=== PATIENT | male | born 1965 | race Caucasian/White ===

== ENCOUNTER 2017-02-13 13:57 | Emergency (ER) | payer OTHER ==
[~2017-02-13] VITALS: Ht 180.3 cm; Wt 75.0 kg
[~2017-02-13 13:57] MED LIST: ASPI1TAB69 PO; ATOR40TA16 PO; CIPR500T2 PO; DICY10 PO; LISI-515 PO; LISI2.5T3 PO; MESA1TAB2 PO; METO25TA6 PO; NORC5TAB PO; OMEP40CA2 PO; SULF500T39 PO; ZOFR4TAB PO
[2017-02-13 13:58] VITALS: BP 140/88; PULSE 80; RESP 20; TEMP 97.5; O2SAT 98
--- NOTE | 2017-02-13 14:39 | PD ---
HPI Chief Complaint: GI Complaint Time Seen by Provider: 14:28 Travel History International Travel<30 days: No Contact w/Intl Traveler<30days: No Traveled to known affect area: No History of Present Illness HPI Patient is a 51-year-old male with long-standing history of ulcerative colitis who missed through Monday of work due to his ulcerative colitis pain. Patient states that this is typical for him and is not severe however work made him come to the emergency department for evaluation and get a work notes prior to returning to work. He does have some nausea and vomiting. Patient is on mesalamine, sulfasalazine, Bentyl, Zofran. Patient states that he is only here for work note. PFSH Past Medical History Hx Anticoagulant Therapy: Yes Arthritis: No Asthma: No Autoimmune Disease: No Blood Disorders: No Bipolar Disorder: Yes Anxiety: No Depression: Yes Heart Rhythm Problems: No Cancer: No Cardiac Catheterization: Yes Cardiovascular Problems: Yes (STENTS X3; [place]) High Cholesterol: No Chest Pain: Yes Congestive Heart Failure: No COPD: No Cerebrovascular Accident: No Coronary Artery Disease: Yes Diabetes: No Diminished Hearing: No Endocrine: No Gastrointestinal Disorders: Yes (ULCERATIVE COLITIS) GERD: Yes Genitourinary: No Headaches: No Hiatal Hernia: No Hypertension: Yes Immune Disorder: No Implanted Vascular Access Dvce: Yes Kidney Stones: No Musculoskeletal: No Neurologic: No Psychiatric: Yes Reproductive: No Respiratory: No Immunizations Current: Yes Migraines: No Myocardial Infarction: Yes (FEBRUARY 2009) Renal Failure: No Seizures: No Sickle Cell Disease: No Sleep Apnea: No Thyroid Disease: No Ulcer: Yes Past Surgical History Abdominal Surgery: No AICD: No Arteriovenous Shunt: No Body Medical Devices: STENTS IN THE HEART Cardiac Surgery: Yes (TWO STENTS PLACED IN 2008) Coronary Stent: Yes Ear Surgery: No Endocrine Surgery: No Eye Surgery: No Genitourinary Surgery: No Gynecologic Surgery: No Insulin Pump: No Joint Replacement: No Neurologic Surgery: No Oral Surgery: No Pacemaker: No Thoracic Surgery: No Other Surgery: Yes (right wrist) Social History Alcohol Use: No Tobacco Use: No Substance Use: No Allergies-Medications (Allergen,Severity, Reaction): Coded Allergies: Penicillin (Verified Allergy, Severe, 02/13/17) Reported Meds & Prescriptions Reported Meds & Active Scripts Active Lisinopril 2.5 Mg Tab 2.5 Mg PO DAILY Sulfazine (Sulfasalazine) 500 Mg Tab 500 Mg PO Q8H Bentyl (Dicyclomine HCl) 10 Mg Cap 10 Mg PO TID Omeprazole 40 Mg Cap 40 Mg PO DAILY Atorvastatin (Atorvastatin Calcium) 40 Mg Tab 40 Mg PO HS Zofran (Ondansetron HCl) 4 Mg Tab 4 Mg PO Q8HR PRN Reported Lisinopril 20 Mg Tab 12.5 Mg PO BID Zofran (Ondansetron HCl) 4 Mg Tab 4 Mg PO Q8HR PRN Metoprolol Succinate ER 24 HR (Metoprolol Succinate) 25 Mg Tab 12.5 Mg PO DAILY Mesalamine DR (Mesalamine) 800 Mg Tab 1,600 Mg PO TID [place] (Hydrocodone-Acetaminophen) 5-325 mg Tab 1-2 Tab PO Q6H PRN Ciprofloxacin (Ciprofloxacin HCl) 500 Mg Tab 500 Mg PO BID Aspirin 81 Mg Tabdr 81 Mg PO DAILY Review of Systems Except as stated in HPI: all other systems reviewed are Neg Physical Exam Narrative GENERAL: Well-appearing male in no acute distress SKIN: Focused skin assessment warm/dry. HEAD: Normocephalic. EYES: No scleral icterus. No injection or drainage. ENT: Mucous membranes pink and moist. NECK: Supple CARDIOVASCULAR: Regular rate and rhythm. RESPIRATORY: No accessory muscle use. GASTROINTESTINAL: Abdomen soft, non-tender, nondistended. MUSCULOSKELETAL: Normal gait NEUROLOGICAL: Awake and alert. Normal speech. PSYCHIATRIC: Appropriate mood and affect; insight and judgment normal. Data Data Last Documented VS Vital Signs Date Time Temp Pulse Resp B/P Pulse Ox O2 Delivery O2 Flow Rate FiO2 02/13/17 13:58 97.5 80 20 140/88 98 Room Air MDM Medical Decision Making Medical Screen Exam Complete: Yes Emergency Medical Condition: Yes Medical Record Reviewed: Yes Differential Diagnosis 55-year-old male with history of ulcerative colitis here with recent flare, pain or any improving. However needs a note for work. His abdominal examination is benign and history is consistent with ulcerative colitis. Patient really is not here for the pain and actually states that this is gradually been improving. Narrative Course In the above and I do not think the patient warrants any abdominal workup. Will be given note to return to work. Diagnosis Primary Impression: Ulcerative colitis Qualified Code: K51.90 - Ulcerative colitis without complications, unspecified location Referrals: Primary Care Physician as needed Departure Forms: Tests/Procedures, Work Release Enter return to work date: Feb 14, 2017 Special Instructions: Please excuse patient from work. He is okay to return to work tomorrow, 02/14. Additional Instructions: Return to work as discussed. Med/Other Pt SpecificInfo: No Change to Meds Disposition: 01 DISCHARGE HOME Condition: Fela Castaneda MD Feb 13, 2017 14:39
[2017-02-13] MEDS ORDERED: ONDANSETRON ODT 4 MG TAB PO ONE (15:00)
== END 2017-02-13 14:59 | disposition home or self-care (01) ==
LOC: NEPD 13:57
DX: K51.90 Ulcerative colitis, unspecified, without complications (principal); R11.2 Nausea with vomiting, unspecified; F31.9 Bipolar disorder, unspecified; K21.9 Gastro-esophageal reflux disease without esophagitis; I10 Essential (primary) hypertension
CPT/HCPCS: 99282

== ENCOUNTER 2017-03-31 13:16 | Emergency (ER) | payer SELFPAY ==
[~2017-03-31] VITALS: Ht 180.3 cm; Wt 75.0 kg
[2017-03-31 13:18] VITALS: BP 118/76; PULSE 88; RESP 17; TEMP 98.2; O2SAT 98
--- NOTE | 2017-03-31 13:30 | PD ---
Physical Exam Time Seen by Provider: 13:30 Narrative 52 y/o male w/ hx of UC presents with 5 days of abdominal cramping, n/v/d. Vital signs reviewed. Seen at triage desk. Awaiting bed placement. Data Data Last Documented VS Vital Signs Date Time Temp Pulse Resp B/P Pulse Ox O2 Delivery O2 Flow Rate FiO2 03/31/17 13:18 98.2 88 17 118/76 98 MDM Medical Record Reviewed: Yes Supervised Visit with RAFAELA: Romeo Alaniz Mar 31, 2017 13:30
[2017-03-31 14:07] LABS: AUTOMATED NEUTROPHIL # 5.3 TH/MM3 (1.8-7.7); BASOPHIL # 0.1 TH/MM3 (0-0.2); EOSINOPHIL # 0.1 TH/MM3 (0-0.4); EOSINOPHIL % 1.3 % (0.0-4.0); HEMATOCRIT 47.7 % (39.0-51.0); HEMO FLAGS DIFF FINAL; MEAN CELL VOLUME 86.9 FL (80.0-100.0); MEAN CORPUSCULAR HEMOGLOBIN 30.3 PG (27.0-34.0); MEAN CORPUSCULAR HGB CONC 34.9 % (32.0-36.0); MONO % 5.8 % (0.0-8.0); NEUT % 66.9 % (16.0-70.0); PLATELET COUNT 251 TH/MM3 (150-450); RED BLOOD COUNT 5.49 MIL/MM3 (4.50-5.90); RED CELL DISTRIBUTION WIDTH 13.1 % (11.6-17.2)
[2017-03-31 14:20] LABS: ALT (GPT) 48 U/L (12-78); ANION GAP 8 MEQ/L (5-15); AST (GOT) 32 U/L (15-37); BICARBONATE 30.1 MEQ/L (21.0-32.0); BLOOD UREA NITROGEN 8 MG/DL (7-18); CHLORIDE 99 MEQ/L (98-107); GLOMERULAR FILTRATION RATE 72 ML/MIN (>89); POTASSIUM 3.8 MEQ/L (3.5-5.1); SODIUM (NA) 137 MEQ/L (136-145)
[2017-03-31 14:22] LABS: ALKALINE PHOSPHATASE 94 U/L (45-117); TOTAL BILIRUBIN ADULT 0.4 MG/DL (0.2-1.0)
--- NOTE | 2017-03-31 14:23 | PD ---
HPI Chief Complaint: GI Complaint Time Seen by Provider: 14:23 Travel History International Travel<30 days: No Contact w/Intl Traveler<30days: No Traveled to known affect area: No History of Present Illness HPI 52-year-old male with history of ulcerative colitis, presents to the emergency department for evaluation of abdominal pain, cramping, and bowel movements varying from loose to liquid over the last 5 days. Denies any blood in his stool. States that he feels that he is having an ulcerative colitis flare. He has not been taking his medications because he states he's been unable to afford them. He is a patient in the community clinic but has not contacted his primary care provider in regards to his symptoms. Denies any fever or chills. Denies chest pain or tightness. Denies any urinary symptoms. He has no other symptoms to report. Patient does report a hospitalization this year for C. difficile and is concerned that this may be happening again. PFSH Past Medical History Hx Anticoagulant Therapy: Yes Arthritis: No Asthma: No Autoimmune Disease: No Blood Disorders: No Bipolar Disorder: Yes Anxiety: No Depression: Yes Heart Rhythm Problems: No Cancer: No Cardiac Catheterization: Yes Cardiovascular Problems: Yes High Cholesterol: No Chest Pain: Yes Congestive Heart Failure: No COPD: No Cerebrovascular Accident: No Coronary Artery Disease: Yes Diabetes: No Diminished Hearing: No Endocrine: No Gastrointestinal Disorders: Yes (ULCERATIVE COLITIS) GERD: Yes Genitourinary: No Headaches: No Hiatal Hernia: No Hypertension: Yes Immune Disorder: No Implanted Vascular Access Dvce: Yes Kidney Stones: No Musculoskeletal: No Neurologic: No Psychiatric: Yes Reproductive: No Respiratory: No Immunizations Current: Yes Migraines: No Myocardial Infarction: Yes (FEBRUARY 2009) Renal Failure: No Seizures: No Sickle Cell Disease: No Sleep Apnea: No Thyroid Disease: No Ulcer: Yes Past Surgical History Abdominal Surgery: No AICD: No Arteriovenous Shunt: No Body Medical Devices: STENTS IN THE HEART Cardiac Surgery: Yes (TWO STENTS PLACED IN 2008) Coronary Stent: Yes Ear Surgery: No Endocrine Surgery: No Eye Surgery: No Genitourinary Surgery: No Gynecologic Surgery: No Insulin Pump: No Joint Replacement: No Neurologic Surgery: No Oral Surgery: No Pacemaker: No Thoracic Surgery: No Other Surgery: Yes (right wrist) Social History Alcohol Use: No Tobacco Use: No Substance Use: No Allergies-Medications (Allergen,Severity, Reaction): Coded Allergies: Penicillin (Verified Allergy, Severe, 02/13/17) Reported Meds & Prescriptions Reported Meds & Active Scripts Active Flagyl (Metronidazole) 500 Mg Tab 500 Mg PO TID 14 Days Sulfasalazine 500 Mg Tab 500 Mg PO Q8H Bentyl (Dicyclomine HCl) 10 Mg Cap 10 Mg PO TID PRN Lisinopril 5 Mg Tab 2.5 Mg PO DAILY Lisinopril 2.5 Mg Tab 2.5 Mg PO DAILY Sulfazine (Sulfasalazine) 500 Mg Tab 500 Mg PO Q8H Bentyl (Dicyclomine HCl) 10 Mg Cap 10 Mg PO TID Omeprazole 40 Mg Cap 40 Mg PO DAILY Atorvastatin (Atorvastatin Calcium) 40 Mg Tab 40 Mg PO HS Zofran (Ondansetron HCl) 4 Mg Tab 4 Mg PO Q8HR PRN Reported Lisinopril 20 Mg Tab 12.5 Mg PO BID Zofran (Ondansetron HCl) 4 Mg Tab 4 Mg PO Q8HR PRN Metoprolol Succinate ER 24 HR (Metoprolol Succinate) 25 Mg Tab 12.5 Mg PO DAILY Mesalamine DR (Mesalamine) 800 Mg Tab 1,600 Mg PO TID [place] (Hydrocodone-Acetaminophen) 5-325 mg Tab 1-2 Tab PO Q6H PRN Ciprofloxacin (Ciprofloxacin HCl) 500 Mg Tab 500 Mg PO BID Aspirin 81 Mg Tabdr 81 Mg PO DAILY Review of Systems Except as stated in HPI: all other systems reviewed are Neg Physical Exam Narrative GENERAL: Well-nourished male patient, ambulatory and in no acute distress SKIN: Focused skin assessment warm/dry. HEAD: Atraumatic. Normocephalic. EYES: Pupils equal and round. No scleral icterus. No injection or drainage. ENT: No nasal bleeding or discharge. Mucous membranes pink and moist. NECK: Trachea midline. No JVD. CARDIOVASCULAR: Regular rate and rhythm. No murmur appreciated. RESPIRATORY: No accessory muscle use. Clear to auscultation. Breath sounds equal bilaterally. GASTROINTESTINAL: Abdomen soft nondistended. Left lower quadrant tenderness to palpation. No guarding. No rebound tenderness. Hepatic and splenic margins not palpable. MUSCULOSKELETAL: No obvious deformities. No clubbing. No cyanosis. No edema. NEUROLOGICAL: Awake and alert. No obvious cranial nerve deficits. Motor grossly within normal limits. Normal speech. PSYCHIATRIC: Appropriate mood and affect; insight and judgment normal. Data Data Last Documented VS Vital Signs Date Time Temp Pulse Resp B/P Pulse Ox O2 Delivery O2 Flow Rate FiO2 03/31/17 13:18 98.2 88 17 118/76 98 Orders Complete Blood Count With Diff (03/31/17 13:32) Comprehensive Metabolic Panel (03/31/17 13:32) Urinalysis - C+S If Indicated (03/31/17 13:32) Lipase (03/31/17 13:32) C Diff Toxin Pcr (03/31/17 14:25) Iv Access Insert/Monitor (03/31/17 14:25) Sodium Chlor 0.9% 1000 Ml Inj (Ns 1000 M (03/31/17 14:30) Labs Laboratory Tests Test 03/31/17 03/31/17 03/31/17 13:19 13:40 15:00 Urine Color YELLOW Urine Turbidity HAZY Urine pH 5.5 Urine Specific [place] 1.017 Urine Protein 30 mg/dL Urine Glucose (UA) NEG mg/dL Urine Ketones NEG mg/dL Urine Occult Blood SMALL Urine Nitrite NEG Urine Bilirubin NEG Urine Urobilinogen LESS THAN 2.0 MG/DL Urine Leukocyte Esterase NEG Urine RBC 21 /hpf Urine WBC 4 /hpf Urine Squamous Epithelial <1 /hpf Cells Urine Bacteria RARE /hpf Urine Hyaline Casts 85 /lpf Urine Mucus MANY /lpf Microscopic Urinalysis Comment CULT NOT INDICATED White Blood Count 8.0 TH/MM3 Red Blood Count 5.49 MIL/MM3 Hemoglobin 16.7 GM/DL Hematocrit 47.7 % Mean Corpuscular Volume 86.9 FL Mean Corpuscular Hemoglobin 30.3 PG Mean Corpuscular Hemoglobin 34.9 % Concent Red Cell Distribution Width 13.1 % Platelet Count 251 TH/MM3 Mean Platelet Volume 8.6 FL Neutrophils (%) (Auto) 66.9 % Lymphocytes (%) (Auto) 25.0 % Monocytes (%) (Auto) 5.8 % Eosinophils (%) (Auto) 1.3 % Basophils (%) (Auto) 1.0 % Neutrophils # (Auto) 5.3 TH/MM3 Lymphocytes # (Auto) 2.0 TH/MM3 Monocytes # (Auto) 0.5 TH/MM3 Eosinophils # (Auto) 0.1 TH/MM3 Basophils # (Auto) 0.1 TH/MM3 CBC Comment DIFF FINAL Differential Comment Sodium Level 137 MEQ/L Potassium Level 3.8 MEQ/L Chloride Level 99 MEQ/L Carbon Dioxide Level 30.1 MEQ/L Anion Gap 8 MEQ/L Blood Urea Nitrogen 8 MG/DL Creatinine 1.08 MG/DL Estimat Glomerular Filtration 72 ML/MIN Rate Random Glucose 148 MG/DL Calcium Level 10.1 MG/DL Total Bilirubin 0.4 MG/DL Aspartate Amino Transf 32 U/L (AST/SGOT) Alanine Aminotransferase 48 U/L (ALT/SGPT) Alkaline Phosphatase 94 U/L Total Protein 7.8 GM/DL Albumin 4.3 GM/DL Lipase 80 U/L Stool C. difficile Toxin (PCR) POSITIVE Stl C. difficile Toxin PRESUMPTIVE Epiderm 027 NEGATIVE MDM Medical Decision Making Medical Screen Exam Complete: Yes Emergency Medical Condition: Yes Medical Record Reviewed: Yes Differential Diagnosis Ulcerative colitis versus diverticulitis versus gastroenteritis versus C. difficile Narrative Course 52-year-old male presents to emergency department for evaluation. Patient appears well and without distress. He does have some left lower quadrant tenderness to palpation, otherwise exam is benign. Vital signs are stable. CBC and CMP are without acute concern. Urinalysis is hazy with small occult blood, 21 RBC, rare bacteria, many mucus. Culture is not indicated. C. difficile PCR is positive. I discussed the patient with my attending physician. Patient appears well. He does not have a leukocytosis. He will be started on Flagyl outpatient. He is encouraged to follow-up with gastroenterology and to return immediately with any acute worsening of symptoms. Patient will also begin refill of his ulcerative colitis medications as well as his antihypertensive. I have explained to him that the antihypertensive is free of [employer]. He agrees to return immediately with any acute worsening symptoms. Diagnosis Primary Impression: Ulcerative colitis Qualified Code: K51.90 - Ulcerative colitis without complications, unspecified location Additional Impression: C. difficile colitis Referrals: [facility] Primary Care Physician Patient Instructions: General Instructions, Ulcerative Colitis (ED) Departure Forms: Tests/Procedures, Work Release Enter return to work date: Apr 03, 2017 Additional Instructions: Maintain a bland diet Maintain adequate oral hydration Frequent handwashing Avoid sharing toilet and restroom space with others Follow-up with a primary care provider Follow-up with gastroenterology Return immediately with any acute worsening symptoms Med/Other Pt SpecificInfo: Prescription(s) given Scripts Metronidazole (Flagyl)500 Mg [id number] Mg PO TID 14 Days Ref 0 Prov:Apple Carlisle 03/31/17 Sulfasalazine 500 Mg [id number] Mg PO Q8H #90 TAB Ref 0 Prov:Apple Carlisle 03/31/17 Dicyclomine (Bentyl)10 Mg Cap10 Mg PO TID PRN (Bowel Management) #21 CAP Ref 0 Prov:Apple Carlisle 03/31/17 Lisinopril 5 Mg Tab2.5 Mg PO DAILY #30 TAB Ref 0 Prov:Apple Carlisle 03/31/17 Disposition: 01 DISCHARGE HOME Condition: Stable Apple Carlisle Mar 31, 2017 14:23
[2017-03-31 14:25] LABS: BACTERIA, URINE RARE /hpf; BLOOD, URINE SMALL (NEG); COMMENT (UR) CULT NOT INDICATED; CULTURE IF INDICATED CULT NOT INDICATED; GLUCOSE,URINE NEG (NEG); HYALINE CAST, URINE 85 /lpf (RARE); KETONE, URINE NEG (NEG); MUCUS URINE MANY /lpf (OCC); NITRITE,URINE NEG (NEG); PH, URINE 5.5 (5.0-8.5); SQUAMOUS EPITHELIAL CELL URINE <1 /hpf (0-5); URINE COLOR YELLOW (YELLW/STRAW)
[2017-03-31] MEDS ORDERED: SODIUM CHLOR 0.9% 1000 ML INJ 1,000 ML IV ONE (14:30)
[2017-03-31] MEDS ORDERED: SULF500T3 PO (17:25)
[2017-03-31] MEDS ORDERED: LISI-519 PO (17:25)
[2017-03-31] MEDS ORDERED: DICY10 PO (17:25)
[2017-03-31 17:37] LABS: C. DIFF EPI 027 PRESUMPTIVE NEGATIVE (NEGATIVE)
[2017-03-31] MEDS ORDERED: METR-1 PO (17:48)
[2017-03-31 17:56] LABS: C. DIFF TOXIN PCR POSITIVE (NEGATIVE)
== END 2017-03-31 18:00 | disposition home or self-care (01) ==
LOC: NEPC 13:16
DX: K51.90 Ulcerative colitis, unspecified, without complications (principal); A04.7 Enterocolitis due to Clostridium difficile; I10 Essential (primary) hypertension; Z79.01 Long term (current) use of anticoagulants
CPT/HCPCS: 80053; 81001; 83690; 85025; 87493; 96360; 99284; J7030

== ENCOUNTER 2017-04-27 11:39 | Emergency (ER) | payer SELFPAY ==
[~2017-04-27] VITALS: Ht 180.3 cm; Wt 75.0 kg
[~2017-04-27 11:39] MED LIST changes: +LISI-519 PO; +METR-1 PO; +SULF500T3 PO
[2017-04-27 11:44] VITALS: BP 149/62; PULSE 95; RESP 20; TEMP 98.6; O2SAT 97
[2017-04-27] MEDS ORDERED: ASPI81CH CHEW (11:52)
--- NOTE | 2017-04-27 12:02 | PD ---
HPI Chief Complaint: Cold / Flu Symptoms Time Seen by Provider: 11:47 Travel History International Travel<30 days: No Contact w/Intl Traveler<30days: No Traveled to known affect area: No History of Present Illness HPI Is a 52-year-old man who presents emergency room clinical cold congestion symptoms with headache and sinus pressure is been ongoing for the past several days. It increased sputum production during the same time. He is also started having loose stools. He had fevers and chills initially the onset of symptoms but they've mostly resolved. No significant abdominal pain. No shortness of breath, no chest pain. He is a history of ulcerative colitis but is not on medications now. He also recently had C. difficile was in the hospital several months ago. Denies any other new or worsening symptoms. History Past Medical History Narrative Medical Ulcerative colitis CAD GERD Hypertension Depression, bipolar Social History Alcohol Use: Yes (seldom) Tobacco Use: No Allergies-Medications (Allergen,Severity, Reaction): Coded Allergies: Penicillin (Verified Allergy, Severe, 04/27/17) Reported Meds & Prescriptions Reported Meds & Active Scripts Active Reported Aspirin 81 Mg Chew 81 Mg CHEW DAILY Review of Systems Except as stated in HPI: all other systems reviewed are Neg Physical Exam Narrative GENERAL: Well-appearing 52-year-old man, no acute distress. Frequent cough and sniffles. SKIN: Focused skin assessment warm/dry. HEAD: Atraumatic. Normocephalic. EYES: Pupils equal and round. No scleral icterus. No injection or drainage. ENT: No nasal bleeding or discharge. Mucous membranes pink and moist. NECK: Trachea midline. No JVD. CARDIOVASCULAR: Regular rate and rhythm. No murmur appreciated. RESPIRATORY: No accessory muscle use. Clear to auscultation. Breath sounds equal bilaterally. GASTROINTESTINAL: Abdomen soft, non-tender, nondistended. Hepatic and splenic margins not palpable. MUSCULOSKELETAL: No obvious deformities. No clubbing. No cyanosis. No edema. Data Data Last Documented VS Vital Signs Date Time Temp Pulse Resp B/P Pulse Ox O2 Delivery O2 Flow Rate FiO2 04/27/17 11:44 98.6 95 20 149/62 97 Room Air Orders C Diff Toxin Pcr (04/27/17 11:58) Chest, Pa & Lat (04/27/17 ) MDM Medical Decision Making Medical Screen Exam Complete: Yes Emergency Medical Condition: Yes Interpretation(s) Chest x-ray no pneumonia Differential Diagnosis URI, viral syndrome, pneumonia, colitis, C. difficile, other Narrative Course medical decision-making this a 52-year-old man who presents emergent department with sounds like acute bronchitis. He's had symptoms for several days and is pretty miserable. He is also recently had C. difficile however. We'll try to avoid antibiotics if possible. We'll check x-ray to look for pneumonia. If patient can give stool sample we'll check a C. difficile. Otherwise will recommend supportive treatment, and if he develops fever again or is not improved in a couple days we 'll start him on antibiotics with probiotics. Diagnosis Primary Impression: URI (upper respiratory infection) Additional Impression: Diarrhea Additional Instructions: If you're feeling worse tomorrow with fever, or if you're not improved in 48 hours, take antibiotics as prescribed. Treated antibiotics with some probiotics such as Align to reduce risk of C. difficile. Follow-up with your primary doctor in the next 2-4 days. Med/Other Pt SpecificInfo: Prescription(s) given Scripts Azithromycin (Zithromax Z-Bryn)250 Mg [id number] Mg PO DIRECTED #1 DSPK 500 MG (2 tabs) day 1, then 1 tab days 2-5. Prov:Eliezer Calderon MD 04/27/17 Disposition: 01 DISCHARGE HOME Condition: Stable Eliezer Calderon MD Apr 27, 2017 12:02
--- NOTE | 2017-04-27 12:31 | RADRPT ---
EXAM DATE/TIME: 04/27/2017 12:07 [facility] COMPARISON: CHEST SINGLE AP, May 04, 2016, 19:33. INDICATIONS : Cough, cold and flu-like symptoms for 5 days. MEDICAL HISTORY : Myocardial infarction. Cardiovascular disease. SURGICAL HISTORY : Coronary artery stent. ENCOUNTER: Initial ACUITY: 4 - 6 days PAIN SCORE: 0/10 LOCATION: Bilateral chest FINDINGS: PA and lateral views of the chest demonstrate the lungs to be symmetrically aerated without evidence of mass, infiltrate or effusion. The cardiomediastinal contours are unremarkable. Mild compression d eformity involving a lower thoracic vertebra body is noted and is indeterminate in age. CONCLUSION: No acute cardiopulmonary disease. Mild compression deformity involving a lower thorac ic vertebra body is noted and is indeterminate in age. Donnie Oakley MD on April 27, 2017 at 12:23 Board Certified Radiologist. This report was verified electronically.
[2017-04-27] MEDS ORDERED: ZITHTAB PO (13:28)
== END 2017-04-27 14:41 | disposition home or self-care (01) ==
LOC: NEPD 11:39
DX: J06.9 Acute upper respiratory infection, unspecified (principal); R19.7 Diarrhea, unspecified; I25.10 Atherosclerotic heart disease of native coronary artery without angina pectoris; K21.9 Gastro-esophageal reflux disease without esophagitis; I10 Essential (primary) hypertension; F31.9 Bipolar disorder, unspecified; Z79.82 Long term (current) use of aspirin; Z88.0 Allergy status to penicillin
CPT/HCPCS: 71020; 99283

== ENCOUNTER 2017-05-19 13:02 | Emergency (ER) | payer SELFPAY ==
[~2017-05-19 13:02] MED LIST changes: -ASPI1TAB69 PO; +ASPI81CH CHEW; -ATOR40TA16 PO; -CIPR500T2 PO; -DICY10 PO; -LISI-515 PO; -LISI-519 PO; -LISI2.5T3 PO; -MESA1TAB2 PO; -METO25TA6 PO; -METR-1 PO; -NORC5TAB PO; -OMEP40CA2 PO; -SULF500T3 PO; -SULF500T39 PO; +ZITHTAB PO; -ZOFR4TAB PO
[2017-05-19 13:09] VITALS: BP 116/67; PULSE 78; RESP 20; TEMP 97.5; O2SAT 99
[2017-05-19] MEDS ORDERED: SODIUM CHLOR 0.9% 1000 ML INJ 1,000 ML IV ONE (13:24)
[2017-05-19 13:30] VITALS: O2SAT 100
[2017-05-19 13:43] LABS: AUTOMATED NEUTROPHIL # 5.8 TH/MM3 (1.8-7.7); BASOPHIL % 0.5 % (0.0-2.0); EOSINOPHIL # 0.1 TH/MM3 (0-0.4); EOSINOPHIL % 0.7 % (0.0-4.0); HEMATOCRIT 43.1 % (39.0-51.0); HEMO FLAGS DIFF FINAL; LYMPH % 25.3 % (9.0-44.0); LYMPHOCYTE # 2.2 TH/MM3 (1.0-4.8); MEAN CELL VOLUME 87.5 FL (80.0-100.0); MEAN CORPUSCULAR HEMOGLOBIN 29.8 PG (27.0-34.0); MONO % 6.1 % (0.0-8.0); NEUT % 67.4 % (16.0-70.0); PLATELET COUNT 233 TH/MM3 (150-450); RED BLOOD COUNT 4.92 MIL/MM3 (4.50-5.90); RED CELL DISTRIBUTION WIDTH 11.6 % (11.6-17.2); WHITE BLOOD COUNT 8.6 TH/MM3 (4.0-11.0)
--- NOTE | 2017-05-19 13:45 | PD ---
HPI Chief Complaint: General Weakness Time Seen by Provider: 13:27 Travel History International Travel<30 days: No Contact w/Intl Traveler<30days: No Traveled to known affect area: No History of Present Illness HPI 52-year-old male with past medical history of OR, ulcerative colitis, bipolar disorder presents to the emergency room after having an episode of dizziness associated with vomiting while digging a ditch. 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 He reports today while digging a ditch in the heat he felt dizzy and began to vomit several times. He then called 911 for transport to the emergency department. Upon arrival he reports dizziness and generalized weakness. He reports he thinks he is dehydrated. He denies chest pain but reports he felt short of breath when he was vomiting. He reports that episode lasted several minutes and then spontaneously resolved. He is not currently on any medications. PFSH Past Medical History Hx Anticoagulant Therapy: Yes Arthritis: No Asthma: No Autoimmune Disease: No Blood Disorders: No Bipolar Disorder: Yes Anxiety: No Depression: Yes Heart Rhythm Problems: No Cancer: No Cardiac Catheterization: Yes Cardiovascular Problems: Yes (3 stents) High Cholesterol: No Chest Pain: Yes Congestive Heart Failure: No COPD: No Cerebrovascular Accident: No Coronary Artery Disease: Yes Diabetes: No Diminished Hearing: No Endocrine: No Gastrointestinal Disorders: Yes (UC) GERD: Yes Genitourinary: No Headaches: No Hiatal Hernia: No Hypertension: Yes Immune Disorder: No Implanted Vascular Access Dvce: Yes Kidney Stones: No Musculoskeletal: No Neurologic: No Psychiatric: Yes Reproductive: No Respiratory: No Immunizations Current: Yes Migraines: No Myocardial Infarction: Yes (FEBRUARY 2009) Renal Failure: No Seizures: No Sickle Cell Disease: No Sleep Apnea: No Thyroid Disease: No Ulcer: Yes Past Surgical History Abdominal Surgery: No AICD: No Arteriovenous Shunt: No Body Medical Devices: STENTS IN THE HEART Cardiac Surgery: Yes (TWO STENTS PLACED IN 2008) Coronary Stent: Yes Ear Surgery: No Endocrine Surgery: No Eye Surgery: No Genitourinary Surgery: No Gynecologic Surgery: No Insulin Pump: No Joint Replacement: No Neurologic Surgery: No Oral Surgery: No Pacemaker: No Thoracic Surgery: No Other Surgery: Yes (right wrist) Social History Alcohol Use: Yes (seldom) Tobacco Use: No Substance Use: No Allergies-Medications (Allergen,Severity, Reaction): Coded Allergies: Penicillin (Verified Allergy, Severe, Anaphylaxis, 05/19/17) Reported Meds & Prescriptions Reported Meds & Active Scripts Active Reported Aspirin 81 Mg Chew 81 Mg CHEW DAILY Review of Systems Except as stated in HPI: all other systems reviewed are Neg General / Constitutional: No: Fever Eyes: No: Visual changes Cardiovascular: No: Chest Pain or Discomfort Respiratory: No: Shortness of Breath Gastrointestinal: Positive: Nausea, Vomiting Genitourinary: No: Dysuria Skin: No Rash Neurologic: Positive: Dizziness Physical Exam Narrative GENERAL: Alert, disheveled and dirty male, in no acute distress. SKIN: Focused skin assessment warm/dry. HEAD: Atraumatic. Normocephalic. EYES: Pupils equal and round. No scleral icterus. No injection or drainage. EOMs intact. No nystagmus. ENT: No nasal bleeding or discharge. Mucous membranes pink and moist. NECK: Trachea midline. No JVD. CARDIOVASCULAR: Regular rate and rhythm. No murmur appreciated. RESPIRATORY: No accessory muscle use. Clear to auscultation. Breath sounds equal bilaterally. No wheezing, rales or rhonchi GASTROINTESTINAL: Abdomen soft, non-tender, nondistended. Hepatic and splenic margins not palpable. MUSCULOSKELETAL: No obvious deformities. No clubbing. No cyanosis. No edema. NEUROLOGICAL: Awake and alert. No obvious cranial nerve deficits. Motor grossly within normal limits. Normal speech. No limb drift. 5 out of 5 strength in extremities PSYCHIATRIC: Appropriate mood and affect; insight and judgment normal. Data Data Last Documented VS Vital Signs Date Time Temp Pulse Resp B/P Pulse Ox O2 Delivery O2 Flow Rate FiO2 05/19/17 14:10 78 16 122/60 100 Room Air 05/19/17 13:09 97.5 Orders Electrocardiogram (05/19/17 13:24) Basic Metabolic Panel (Bmp) (05/19/17 13:24) Complete Blood Count With Diff (05/19/17 13:24) Troponin I (05/19/17 13:24) Ct Brain W/O Iv Contrast(Rout) (05/19/17 13:24) Ecg Monitoring (05/19/17 13:24) Iv Access Insert/Monitor (05/19/17 13:24) Oximetry (05/19/17 13:24) Sodium Chlor 0.9% 1000 Ml Inj (Ns 1000 M (05/19/17 13:24) Labs Laboratory Tests Test 05/19/17 13:25 White Blood Count 8.6 TH/MM3 Red Blood Count 4.92 MIL/MM3 Hemoglobin 14.7 GM/DL Hematocrit 43.1 % Mean Corpuscular Volume 87.5 FL Mean Corpuscular Hemoglobin 29.8 PG Mean Corpuscular Hemoglobin 34.0 % Concent Red Cell Distribution Width 11.6 % Platelet Count 233 TH/MM3 Mean Platelet Volume 8.6 FL Neutrophils (%) (Auto) 67.4 % Lymphocytes (%) (Auto) 25.3 % Monocytes (%) (Auto) 6.1 % Eosinophils (%) (Auto) 0.7 % Basophils (%) (Auto) 0.5 % Neutrophils # (Auto) 5.8 TH/MM3 Lymphocytes # (Auto) 2.2 TH/MM3 Monocytes # (Auto) 0.5 TH/MM3 Eosinophils # (Auto) 0.1 TH/MM3 Basophils # (Auto) 0.0 TH/MM3 CBC Comment DIFF FINAL Differential Comment Sodium Level 142 MEQ/L Potassium Level 3.3 MEQ/L Chloride Level 110 MEQ/L Carbon Dioxide Level 23.4 MEQ/L Anion Gap 9 MEQ/L Blood Urea Nitrogen 17 MG/DL Creatinine 1.20 MG/DL Estimat Glomerular Filtration 64 ML/MIN Rate Random Glucose 104 MG/DL Calcium Level 8.7 MG/DL Troponin I LESS THAN 0.02 NG/ML MDM Medical Decision Making Medical Screen Exam Complete: Yes Emergency Medical Condition: Yes Differential Diagnosis Dehydration versus metabolic abnormalities versus ACS versus vertigo versus orthostasis Narrative Course 52-year-old male with past medical history of OR, ulcerative colitis, bipolar disorder who is currently living in transitional housing and 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 He called EMS for transport to the hospital for evaluation. EMS administered 4 mg IV Zofran and 500 cc of normal saline en route. On arrival to the emergency department patient is complaining of feeling dehydrated. He reports he is not used to working outside in the heat. He is a disheveled male who makes poor eye contact when interviewing him. He does not appear in any distress. IV access established, placed on cardiac and pulse oximetry monitoring , labs ordered and pending, IV fluids administered, EKG obtained, CT the brain pending. CBC: Unremarkable BMP: Unremarkable with the exception of potassium 3.3 replace with oral potassium chloride in ED Troponin: Negative, Less than 0.2 EKG: Sinus rhythm, rate 69, no ST elevation or depression, normal axis, normal intervals CT the brain: No intracranial abnormality. 1450 patient reassessed at this time. He reports symptom improvement and is requesting discharge. He reports the dizziness has resolved. He has a mild headache. He has a normal neurologic exam. Return precautions discussed with patient he agrees to plan. Diagnosis Primary Impression: Dizziness Additional Impression: Hypokalemia Referrals: [facility] Additional Instructions: Stay well hydrated by drinking plenty of fluids. Avoid being out in the heat for long periods of time. Follow-up with the [facility]. Return to the emergency department if he developed new or worsening symptoms Disposition: 01 DISCHARGE HOME Condition: Stable Pati French May 19, 2017 13:45
[2017-05-19 13:54] LABS: CHLORIDE 110 MEQ/L (98-107); POTASSIUM 3.3 MEQ/L (3.5-5.1); SODIUM (NA) 142 MEQ/L (136-145)
[2017-05-19 13:57] LABS: ANION GAP 9 MEQ/L (5-15); BICARBONATE 23.4 MEQ/L (21.0-32.0)
[2017-05-19 13:58] LABS: BLOOD UREA NITROGEN 17 MG/DL (7-18)
[2017-05-19 14:01] LABS: GLOMERULAR FILTRATION RATE 64 ML/MIN (>89)
[2017-05-19 14:10] VITALS: BP 122/60; PULSE 78; RESP 16; O2SAT 100
--- NOTE | 2017-05-19 14:33 | RADRPT ---
EXAM DATE/TIME: 05/19/2017 14:12 [facility] COMPARISON: No previous studies available for comparison. INDICATIONS : Dizziness. Cephalgia. RADIATION DOSE: 65.33 CTDIvol (mGy) MEDICAL HISTORY : Myocardial infarction. Hypertension. Diabetes mellitus type 2. SURGICAL HISTORY : None. ENCOUNTER: Initial ACUITY: 1 day PAIN SCALE: 8/10 LOCATION: cranial TECHNIQUE: Multiple contiguous axial images were obtained of the head. Using automated exposure control and adj ustment of the mA and/or kV according to patient size, radiation dose was kept as low as reasonably a chievable to obtain optimal diagnostic quality images. DICOM format image data is available electro nically for review and comparison. FINDINGS: CEREBRUM: The ventricles are normal for age. No evidence of midline shift, mass lesion, hemorrhage or acute in farction. No extra-axial fluid collections are seen. POSTERIOR FOSSA: The cerebellum and brainstem are intact. The 4th ventricle is midline. The cerebellopontine angle i s unremarkable. EXTRACRANIAL: The visualized portion of the orbits is intact. SKULL: The calvaria is intact. No evidence of skull fracture. CONCLUSION: Normal examination. Srinivas Horne MD on May 19, 2017 at 14:31 Board Certified Radiologist. This report was verified electronically.
[2017-05-19] MEDS ORDERED: POTASSIUM CHLORIDE 20 MEQ CONTROLLED RELEASE TAB PO ONE (15:00)
[2017-05-19] MEDS ORDERED: ACETAMINOPHEN 325 MG TAB PO ONE (15:00)
[2017-05-19 15:25] VITALS: BP 125/71; PULSE 74; RESP 16; O2SAT 99
--- NOTE | 2017-05-20 12:28 | EKG ---
Date Performed: 05/19/2017 Time Performed: 14:28:00 PTAGE: 52 years EKG: Sinus rhythm Since previous tracing, no significant change noted NORMAL ECG PREVIOUS TRACING : 09.07.2016 18.02.01 DOCTOR: Manuel Kearney Interpretating Date/Time 05/20/2017 12:22:07
== END 2017-05-19 15:30 | disposition home or self-care (01) ==
LOC: PHEFT 13:02
DX: R42 Dizziness and giddiness (principal); E87.6 Hypokalemia; R06.02 Shortness of breath
CPT/HCPCS: 70450; 80048; 84484; 85025; 93005; 96360; 99285; J7030

== ENCOUNTER 2018-08-24 12:30 | Observation (INO) ==
--- NOTE | 2018-08-24 16:15 | XR ---
EXAM DATE: 08/24/2018 4:10 PM EDT AGE/SEX: 53 years / Male INDICATIONS: Chest pain. CLINICAL DATA: This is the patient's initial encounter. Patient reports that signs and symptoms have been present for 2 weeks and indicates a pain score of 7/10. MEDICAL/SURGICAL HISTORY: Hypertension. . Cardiac stents. COMPARISON: No prior exams available for comparison. FINDINGS: A single AP view of the chest demonstrates the lungs to be symmetrically aerated without evidence of mass, infiltrate or effusion. The cardiomediastinal contours are unremarkable. Osseous structures a re intact. CONCLUSION: No acute cardiopulmonary disease. Electronically signed by: Bonifacio Landrum MD 08/24/2018 4:14 PM EDT
[2018-08-24 16:19] LABS: Baso # (Auto) 0.1 th/mm3 (0.0-0.2); Baso % (Auto) 0.8 % (0.0-2.0); Eos # (Auto) 0.1 th/mm3 (0.0-0.4); Hematocrit 43.4 % (39.0-51.0); Hemoglobin 15.2 gm/dL (13.0-17.0); Lymph # (Auto) 2.7 th/mm3 (1.0-4.8); Lymph % (Auto) 29.4 % (9.0-44.0); Mean Corpuscular HGB Conc 35.2 % (32.0-36.0); Mean Corpuscular Hemoglobin 30.7 pg (27.0-34.0); Mean Corpuscular Volume 87.3 fL (80.0-100.0); Mean Platelet Volume 8.3 fL (7.0-11.0); Mono # (Auto) 0.8 th/mm3 (0.0-0.9); Mono % (Auto) 8.5 % (0.0-8.0); Neut # (Auto) 5.6 th/mm3 (1.8-7.7); Neut % (Auto) 60.3 % (16.0-70.0); Platelet Count 250 th/mm3 (150-450); Red Blood Count 4.97 mil/mm3 (4.50-5.90); White Blood Count 9.2 th/mm3 (4.0-11.0)
[2018-08-24 16:42] LABS: Platelet Estimate Normal (Normal); Platelet Morphology Normal (Normal); RBC Morphology Normal (Normal)
[2018-08-24 16:53] LABS: Albumin 3.8 g/dL (3.4-5.0); Anion Gap 9 meq/L (5-15); Aspartate Aminotransferase 21 U/L (15-37); Blood Urea Nitrogen 14 mg/dL (7-18); Carbon Dioxide 26.4 meq/L (21.0-32.0); Chloride 102 meq/L (98-107); Glomerular Filtration Rate Greater Than 89 mL/min (>89); Glucose,Random 198 mg/dL (74-106); Lipase 78 U/L (73-393); Potassium 3.6 meq/L (3.5-5.1); Sodium 137 meq/L (136-145)
[2018-08-24 16:59] LABS: Alanine Aminotransferase 39 U/L (12-78); Alkaline Phosphatase 106 U/L (45-117); Total Protein 7.4 g/dL (6.4-8.2)
--- NOTE | 2018-08-24 17:07 | ED ---
HPI General Chief Complaint: Chest Pain Stated Complaint: Chest pain/Medical Time Seen by Provider: 08/24/18 15:49 History of Present Illness HPI narrative: This is a 53-year-old gentleman with a history of Crohn's disease , coronary artery disease, poor social situation, presents today with complaints of chest pain, URI type symptoms, and diarrhea. Patient states that he has had these symptoms now for up to 2 weeks. He denies any fevers, chills. Patient states that he has been off of all of his medications for years. He states he last had a stent placed in 2011. Related Data Home Medications Medication Instructions Recorded Confirmed No Known Home Medications 08/24/18 08/24/18 Allergies Allergy/AdvReac Type Severity Reaction Status Date / Time penicillin G Allergy Severe Anaphylaxis Verified 08/24/18 15:28 Review of Systems ROS: all other systems reviewed are negative Constitutional Reports system reviewed and no additional complaints, except as docu Eyes Reports system reviewed and no additional complaints, except as docu ENT Reports system reviewed and no additional complaints, except as docu Cardiovascular Reports chest pain, Denies diaphoresis, Denies syncope and Reports dyspnea Respiratory Denies chest congestion, Reports cough and Reports dyspnea Gastrointestinal Denies melena, Denies hematochezia, Reports diarrhea, Reports nausea and Denies vomiting Genitourinary Reports system reviewed and no additional complaints, except as docu Musculoskeletal Denies back pain Neurologic Denies dizziness, Denies focal weakness and Denies weakness PMFSH Medical History Medical History Bipolar 1 disorder (Acute) Colitis (Acute) Heart disease (Acute) Social History Social History Second Hand Smoke Exposure: No Smoking Status: Never smoker How Often Do You Have a Drink Containing Alcohol: Never Recent Travel in [facility] within the Last 8 Weeks: No Recent Out of Country Travel within the Last 8 Weeks: No Immunization History Tetanus Immunization: Unsure Exam Narrative Exam Narrative: GENERAL: Well-developed well-nourished male in no acute respiratory distress. SKIN: Focused skin assessment warm/dry. HEAD: Atraumatic. Normocephalic. EYES: No scleral icterus. No injection or drainage. ENT: No nasal bleeding or discharge. Mucous membranes pink and moist. NECK: Trachea midline. Supple. CARDIOVASCULAR: Regular rate and rhythm. No murmur appreciated. RESPIRATORY: No accessory muscle use. Clear to auscultation. Breath sounds equal bilaterally. GASTROINTESTINAL: Abdomen soft, nondistended. Patient had subjective cramping. There is no rebound or guarding. No rigidity. MUSCULOSKELETAL: No obvious deformities. No clubbing. No cyanosis. No edema. NEUROLOGICAL: Awake and alert. No obvious cranial nerve deficits. Motor grossly within normal limits. Normal speech. Course Initial Documented Vital Signs Temperature 98.3 F 08/24/18 12:33 Pulse Rate 84 08/24/18 12:33 Respiratory Rate 18 08/24/18 12:33 Blood Pressure 126/72 08/24/18 12:33 Pulse Oximetry 100 08/24/18 12:33 Last Documented Vital Signs Temperature 98.3 F 08/24/18 12:33 Pulse Rate 75 08/24/18 18:45 Respiratory Rate 16 08/24/18 18:45 Blood Pressure 116/68 08/24/18 18:45 Pulse Oximetry 97 08/24/18 18:45 Medical Decision Making MDM Narrative Medical decision making narrative: 53-year-old 53-year-old male with a history of Crohn's disease, coronary artery disease, who presents today with complaints of chest pain, cough and congestion, diarrhea. Patient has normal EKG and normal cardiac enzymes. Given his history of illnesses and previous medical problems, the patient will be admitted under observation rather go to the chest pain center. [facility] who [facility] with the above plan. Medical Screen Exam Complete: Yes Emergency Medical Condition: Yes Differential Diagnosis Differential Diagnosis: Metabolic derangement versus Crohn's exacerbation versus ACS Lab Data Result diagrams: 08/24/18 16:04 08/24/18 16:04 Lab Results 08/24/18 08/24/18 Range/Units 16:04 16:04 WBC 9.2 (4.0-11.0) th/mm3 RBC 4.97 (4.50-5.90) mil/mm3 Hgb 15.2 (13.0-17.0) gm/dL Hct 43.4 (39.0-51.0) % MCV 87.3 (80.0-100.0) fL MCH 30.7 (27.0-34.0) pg MCHC 35.2 (32.0-36.0) % RDW 13.0 (11.6-17.2) % Plt Count 250 (150-450) th/mm3 MPV 8.3 (7.0-11.0) fL Prelim Diff (Auto) Slide review pending Neut % (Auto) 60.3 (16.0-70.0) % Lymph % (Auto) 29.4 (9.0-44.0) % [place] % (Auto) 8.5 H (0.0-8.0) % Eos % (Auto) 1.0 (0.0-4.0) % Baso % (Auto) 0.8 (0.0-2.0) % Neut # (Auto) 5.6 (1.8-7.7) th/mm3 Lymph # (Auto) 2.7 (1.0-4.8) th/mm3 [place] # (Auto) 0.8 (0.0-0.9) th/mm3 Eos # (Auto) 0.1 (0.0-0.4) th/mm3 Baso # (Auto) 0.1 (0.0-0.2) th/mm3 WBC Differential . Diff Scan Auto diff confirmed Differential Comment . Platelet Estimate Normal (Normal) Platelet Morphology Normal (Normal) RBC Morphology Normal (Normal) Sodium 137 (136-145) meq/L Potassium 3.6 (3.5-5.1) meq/L Chloride 102 (98-107) meq/L Carbon Dioxide 26.4 (21.0-32.0) meq/L Anion Gap 9 (5-15) meq/L BUN 14 (7-18) mg/dL Creatinine 0.88 (0.60-1.30) mg/dL Estimated GFR Greater than 89 (>89) mL/min Random Glucose 198 H (74-106) mg/dL Calcium 9.0 (8.5-10.1) mg/dL Total Bilirubin 0.2 (0.2-1.0) mg/dL AST 21 (15-37) U/L ALT 39 (12-78) U/L Alkaline Phosphatase 106 (45-117) U/L Total Creatine Kinase 60 (39-308) U/L Troponin I Less than 0.02 L (0.02-0.05) ng/mL Total Protein 7.4 (6.4-8.2) g/dL Albumin 3.8 (3.4-5.0) g/dL Lipase 78 (73-393) U/L Imaging Data Radiologist's impression: Chest X-Ray 08/24/18 15:49 CONCLUSION: No acute cardiopulmonary disease. Discharge Plan Discharge Disposition Patient Disposition: 30 Still Patient Discharge Details Diagnosis: Atypical chest pain, Diarrhea, Crohn's disease Physicians Team ED Provider: Den Mcmullen Primary Care Provider: Primary Cathie Barron Attending Provider: Tana Piper Discharge Interventions Interventions: Vital Signs Last Done: 08/24/18 15:33 Status ED Status: Admitted Observation Patient
[2018-08-24 17:29] LABS: Creatine Kinase 60 U/L (39-308)
[2018-08-24] MEDS ORDERED: Iohexol 350 MG/ML 100 ML Vial (for Cath Lab) IVCONTRAST ONE (19:03)
[2018-08-24] MEDS ORDERED: Iohexol 350 MG/ML 50 ML Vial (for Cath Lab) IVCONTRAST ONE (19:03)
[2018-08-24] MEDS ORDERED: Bisacodyl 10 MG Supp RECTAL PRN (19:34)
[2018-08-24 21:48] LABS: Baso # (Auto) 0.2 th/mm3 (0.0-0.2); Baso % (Auto) 2.2 % (0.0-2.0); Eos # (Auto) 0.1 th/mm3 (0.0-0.4); Eos % (Auto) 1.1 % (0.0-4.0); Hematocrit 41.9 % (39.0-51.0); Hemoglobin 14.6 gm/dL (13.0-17.0); Lymph # (Auto) 2.9 th/mm3 (1.0-4.8); Lymph % (Auto) 36.8 % (9.0-44.0); Mean Corpuscular HGB Conc 34.9 % (32.0-36.0); Mean Corpuscular Hemoglobin 30.2 pg (27.0-34.0); Mean Corpuscular Volume 86.5 fL (80.0-100.0); Mono # (Auto) 0.4 th/mm3 (0.0-0.9); Mono % (Auto) 5.6 % (0.0-8.0); Neut # (Auto) 4.2 th/mm3 (1.8-7.7); Neut % (Auto) 54.3 % (16.0-70.0); Platelet Count 270 th/mm3 (150-450); Red Blood Count 4.84 mil/mm3 (4.50-5.90); Red Cell Distribution Width 13.3 % (11.6-17.2); White Blood Count 7.8 th/mm3 (4.0-11.0)
[2018-08-25 04:15] LABS: Albumin 3.6 g/dL (3.4-5.0); Anion Gap 8 meq/L (5-15); Aspartate Aminotransferase 27 U/L (15-37); Blood Urea Nitrogen 15 mg/dL (7-18); Calcium 8.6 mg/dL (8.5-10.1); Carbon Dioxide 27.6 meq/L (21.0-32.0); Chloride 101 meq/L (98-107); Cholesterol 248 mg/dL (120-200); Glomerular Filtration Rate Greater Than 89 mL/min (>89); Glucose,Random 153 mg/dL (74-106); Potassium 3.9 meq/L (3.5-5.1); Sodium 137 meq/L (136-145); Triglycerides 351 mg/dL (42-150)
[2018-08-25 04:20] LABS: Alanine Aminotransferase 39 U/L (12-78); Alkaline Phosphatase 92 U/L (45-117); Chol/HDL Ratio 6.24 Ratio; HDL Cholesterol 39.7 mg/dL (40.0-60.0); LDL Cholesterol,Calculated 138 mg/dL (0-99); Total Protein 7.1 g/dL (6.4-8.2)
[2018-08-25] MEDS ORDERED: Dextrose 50% in Water 50 ML Vial IV.PUSH PRN (07:29)
[2018-08-25] MEDS ORDERED: Regadenoson Inj 0.4 MG/5 ML Syringe IV.PUSH ONE (10:09)
--- NOTE | 2018-08-25 10:24 | P.HP ---
History of Present Illness Service: Hospitalist Primary Care Physician: No Primary Care Physician Chief Complaint: chest pain History of Present Illness: This is a 53yo male with a PMHX significant for CAD with hx of previous [place] and cardiac stents x 3, the last one placed in 2011, hypertension, dyslipidemia, GERD, UC and hx of C diff who presents to [facility] ED with complaints of chest pain. Patient describes alternating sharp and squeezing type left sided nonradicular chest pain for the past few weeks with activity and associated nausea and shortness of breath. He denies any palpitations, vomiting, dizziness , weakness, diaphoresis or abdominal pain. He says his chest pain is similar to chest pain he experienced during his last heart attack. 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 He has not been on any of his chronic medications for the past few years secondary to lack of funds. He reports recent upper respiratory infection with occasional cough with yellowish sputum production. He reports intermittent diarrhea due to ulcerative colitis disease but he has not had any bowel movement since this admission. He states he has had some chest pain thru the night and this morning. He also reports burning epigastric pain that he believes is due to his reflux. Review of Systems All other systems reviewed negative except as stated in HPI PMFSH - History History Provided By: Patient - Medical History Medical History: Medical History (Last Updated 08/25/18 @ 10:23 by Kamini Bradford) Bipolar 1 disorder Colitis GERD (gastroesophageal reflux disease) Heart disease Hypertension - Surgical History Surgical History: Surgical History (Last Updated 08/25/18 @ 10:24 by Kaimni Bradford) History of heart artery stent History of hip surgery S/P wrist surgery - Family History Family History: Family History (Last Updated 08/25/18 @ 10:24 by Kamini Bradford) Other Cancer Heart disease - Social History I have reviewed the patient's Social History: Yes - Tobacco History Second Hand Smoke Exposure: Yes (Exposed at work.) Tobacco Use In Past 30 Days: No Smoking Status: Never smoker - Alcohol History How Often Do You Have a Drink Containing Alcohol: Monthly or less - Substance Use History Substance History: No History of Abuse - Travel History Recent Travel in the [facility] Within the Last 8 Weeks: No Recent Travel Out of the Country Within the Last 8 Weeks: No - Immunization History Tetanus Immunization: Unsure Medications and Allergies Active Medications: Active Medications Al Hydroxide/Mg Hydroxide (Milk Of Magnesia Liq) 30 ml PO Q12H PRN PRN Reason: Mild Constipation Aspirin (Ecotrin) 81 mg PO DAILY [facility] Last Admin: 08/25/18 09:46 Dose: 81 mg Bisacodyl (Dulcolax Supp) 10 mg RECTAL DAILY PRN PRN Reason: SEVERE CONSITIPATION Dextrose (D50w Vial) 50 ml IV.PUSH UNSCH PRN PRN Reason: PER HYPOGLYCEMIA PROTOCOL Glucagon (Glucagon Inj) 1 mg OTHER PRN PRN PRN Reason: for Hypoglycemia Protocol Insulin Aspart (Novolog Insulin Correctional Sugar Inj) 0 unit SQ Q6HR RAJESH; Protocol Lactulose (Lactulose Liq) 30 ml PO DAILY PRN PRN Reason: SEVERE CONSITIPATION Sennosides (Senokot) 17.2 mg PO Q12H PRN PRN Reason: Moderate Constipation Sodium Chloride (Ns Flush) 2 ml IV.FLUSH UNSCH PRN PRN Reason: FLUSH AFTER USING IV ACCESS Allergies Allergy/AdvReac Type Severity Reaction Status Date / Time penicillin G Allergy Severe Anaphylaxis Verified 08/24/18 15:28 Home Medications Medication Instructions Recorded Confirmed Type No Known Home Medications 08/24/18 08/24/18 History Exam Vital signs: Vital Signs 08/24/18 12:33 08/24/18 15:33 08/24/18 15:49 Temperature 98.3 F Pulse Rate 84 81 Respiratory Rate 18 18 Blood Pressure 126/72 132/82 Pulse Oximetry 100 100 97 08/24/18 18:45 08/24/18 19:29 08/24/18 19:31 Temperature Pulse Rate 75 79 76 Respiratory Rate 16 16 16 Blood Pressure 116/68 118/73 118/73 Pulse Oximetry 97 97 97 08/25/18 00:00 08/25/18 03:35 08/25/18 08:00 Temperature 98.7 F 97.8 F 98.0 F Pulse Rate 72 72 77 Respiratory Rate 14 14 16 Blood Pressure 103/74 93/69 L 143/81 H Pulse Oximetry 97 96 99 Intake & Output 08/24/18 08/25/18 08/25/18 18:59 06:59 18:59 Weight 74.843 kg Other: Date of Last Bowel Movement 08/24/18 Narrative: GENERAL: WDWN male patient, INAD. Awake and alert. Appears comfortable. SKIN: Warm and dry. No generalized rash. HEAD: Atraumatic. Normocephalic. EYES: Pupils equal and round. No scleral icterus. No injection or drainage. ENT: No nasal bleeding or discharge. Mucous membranes pink and moist. NECK: Trachea midline. CARDIOVASCULAR: Regular rate and rhythm. RESPIRATORY: No accessory muscle use. Clear to auscultation. Breath sounds equal bilaterally. GASTROINTESTINAL: Abdomen soft, non-tender, nondistended. Hepatic and splenic margins not palpable. MUSCULOSKELETAL: Extremities without clubbing, cyanosis, or edema. No obvious deformities. NEUROLOGICAL: Awake and alert. No obvious cranial nerve deficits. Motor grossly within normal limits. Able to move all extremities spontaneously. Normal speech. PSYCHIATRIC: Appropriate mood and affect; insight and judgment normal. Results - Labs CBC & Chem 7: 08/24/18 21:34 08/25/18 03:21 Labs: Laboratory Results - last 24 hr 08/24/18 08/24/18 08/24/18 16:04 16:04 21:34 WBC 9.2 7.8 RBC 4.97 4.84 Hgb 15.2 14.6 Hct 43.4 41.9 MCV 87.3 86.5 MCH 30.7 30.2 MCHC 35.2 34.9 RDW 13.0 13.3 Plt Count 250 270 MPV 8.3 8.0 Prelim Diff (Auto) Slide review pending Neut % (Auto) 60.3 54.3 Lymph % (Auto) 29.4 36.8 [place] % (Auto) 8.5 H 5.6 Eos % (Auto) 1.0 1.1 Baso % (Auto) 0.8 2.2 H Neut # (Auto) 5.6 4.2 Lymph # (Auto) 2.7 2.9 [place] # (Auto) 0.8 0.4 Eos # (Auto) 0.1 0.1 Baso # (Auto) 0.1 0.2 WBC Differential . . Diff Scan Auto diff confirmed Differential Comment . Auto diff final Platelet Estimate Normal Platelet Morphology Normal RBC Morphology Normal Sodium 137 Potassium 3.6 Chloride 102 Carbon Dioxide 26.4 Anion Gap 9 BUN 14 Creatinine 0.88 Estimated GFR Greater than 89 POC Glucose Random Glucose 198 H Calcium 9.0 Total Bilirubin 0.2 AST 21 ALT 39 Alkaline Phosphatase 106 Total Creatine Kinase 60 Troponin I Less than 0.02 L Total Protein 7.4 Albumin 3.8 Triglycerides Cholesterol LDL Cholesterol, Calc HDL Cholesterol Cholesterol/HDL Ratio Lipase 78 08/24/18 08/25/18 08/25/18 21:34 03:21 07:58 WBC RBC Hgb Hct MCV MCH MCHC RDW Plt Count MPV Prelim Diff (Auto) Neut % (Auto) Lymph % (Auto) [place] % (Auto) Eos % (Auto) Baso % (Auto) Neut # (Auto) Lymph # (Auto) [place] # (Auto) Eos # (Auto) Baso # (Auto) WBC Differential Diff Scan Differential Comment Platelet Estimate Platelet Morphology RBC Morphology Sodium 137 Potassium 3.9 Chloride 101 Carbon Dioxide 27.6 Anion Gap 8 BUN 15 Creatinine 0.85 Estimated GFR Greater than 89 POC Glucose 208 H Random Glucose 153 H Calcium 8.6 Total Bilirubin 0.4 AST 27 ALT 39 Alkaline Phosphatase 92 Total Creatine Kinase Troponin I Less than 0.02 L Less than 0.02 L Total Protein 7.1 Albumin 3.6 Triglycerides 351 H Cholesterol 248 H LDL Cholesterol, Calc 138 H HDL Cholesterol 39.7 L Cholesterol/HDL Ratio 6.24 Lipase - Imaging Impressions Chest X-Ray 08/24/18 15:49 CONCLUSION: No acute cardiopulmonary disease. Caprini VTE Risk Assessment Caprini VTE Risk Assessment: No/Low Risk (score <= 1) Caprini Risk Assessment Model: Point Value = 1 Point Value = 2 Point Value = 3 Point Value = 5 Age 41-60 Minor surgery BMI > 25 kg/m2 Swollen legs Varicose veins or History of unexplained or recurrent spontaneous Oral contraceptives or hormone replacement Sepsis (< 1 month) Serious lung disease, including pneumonia (< 1 month) Abnormal pulmonary function Acute myocardial infarction Congestive heart failure (< 1 month) History of inflammatory bowel disease Medical patient at bed rest Age 61-74 Arthroscopic surgery Major open surgery (> 45 min) Laparoscopic surgery (> 45 min) Malignancy Confined to bed (> 72 hours) Immobilizing plaster cast Central venous access Age >= 75 History of VTE Family history of VTE Factor V Leiden Prothrombin [id number] Lupus anticoagulant Anticardiolipin antibodies Elevated serum homocysteine Heparin-induced thrombocytopenia Other congenital or acquired thrombophilia Stroke (< 1 month) Elective arthroplasty Hip, pelvis, or leg fracture Acute spinal cord injury (< 1 month) Prophylaxis Regimen: Total Risk Factor Score Risk Level Prophylaxis Regimen 0-1 Low Early ambulation 2 Moderate Order ONE of the following: *Sequential Compression Device (SCD) *Heparin 5000 units SQ BID 3-4 Higher Order ONE of the following medications: *Heparin 5000 units SQ TID *Enoxaparin/Lovenox 40 mg SQ daily (WT < 150 kg, CrCl > 30 mL/min) *Enoxaparin/Lovenox 30 mg SQ daily (WT < 150 kg, CrCl > 10-29 mL/min) *Enoxaparin/Lovenox 30 mg SQ BID (WT < 150 kg, CrCl > 30 mL/min) AND/OR *Sequential Compression Device (SCD) 5 or more Highest Order ONE of the following medications: *Heparin 5000 units SQ TID (Preferred with Epidurals) *Enoxaparin/Lovenox 40 mg SQ daily (WT < 150 kg, CrCl > 30 mL/min) *Enoxaparin/Lovenox 30 mg SQ daily (WT < 150 kg, CrCl > 10-29 mL/min) *Enoxaparin/Lovenox 30 mg SQ BID (WT < 150 kg, CrCl > 30 mL/min) AND *Sequential Compression Device (SCD) Assessment and Plan - Plan 53yo male with a PMHX significant for CAD with hx of previous [place] and cardiac stents x 3, the last one placed in 2011, hypertension, dyslipidemia, GERD, UC and hx of C diff who presents to [facility] ED with complaints of chest pain. Chest pain r/o ACS CAD s/p previous AZ and hx of cardiac stents x 3 Medication noncompliant Echo 2015 EF 55-60% -Lexiscan ordered -Patient reports his chest pain is the same as prior to his previous AZ. We will consult cardiology, very much appreciate assistance -Will begin on Asa, lipitor and BB daily -continuous cardiac monitoring -Nitro prn chest pain Hypertension Dyslipidemia noncompliant with medications due to lack of funding -will start on low dose BB Metoprolol 12.5mg BID -start on Lipitor 40mg daily -monitor BP and adjust treatment accordingly GERD hx of C diff -Pepcid 20mg BID Hyperglycemia -Obtain HgbA1c -accucheks and ISS DVT prophylaxis -bilateral SCDs/MARY LOU hose Code Status: Full Discussed Condition With: patient, nursing staff, Dr. Hamilton Discharge Planning: Not ready for discharge. Possible discharge later today if Lexiscan neg
--- NOTE | 2018-08-25 11:26 | NM ---
EXAM DATE: 08/25/2018 11:14 AM EDT AGE/SEX: 53 years / Male INDICATIONS:Angina. . Chest pain. CLINICAL DATA: This is the patient's initial encounter. Patient reports that signs and symptoms have been present for 2 weeks and indicates a pain score of 3/10. MEDICAL/SURGICAL HISTORY: . Colitis, Crohn's disease, bipolar disease, coronary artery disease. . COMPARISON: No prior exams available for comparison. DOSE: 8.3 mCi Tc 99m Myoview at rest 27.2 mCi [id number] at stress 0.4 mg Lexiscan STRESS SYMPTOMS: Abdominal cramping and dyspnea. EJECTION FRACTION: 70 % TECHNIQUE: The patient underwent pharmacologic stress with infusion of prescribed dose. Continuous ECG tracing was monitored during stress. Gated SPECT imaging was performed after stress and conventi onal SPECT imaging was performed at rest. The examination was performed on a SPECT/CT scanner, both attenuation and non-corrected datasets were reviewed. FINDINGS: Distribution: The maximum perfused segment at stress is in the inferior lateral wall. Perfusion Study: There is a moderate size area of decreased perfusion on the stress images in the a nterior and anterior septal wall in the mid left ventricle and extending to the apex. No fixed perfus ion defect is identified. Gated Study: There are intact wall motion and wall thickening without hypokinetic or dyskinetic segm ents. The ejection fraction is calculated at 70%. RISK CATEGORY: Intermediate (1-3 % Annual Mortality Rate) CONCLUSION: 1. There is a moderate size reversible perfusion defect involving the anterior and anterior septal w all of the mid left ventricle and apex. Findings are suspicious for stress-induced ischemia. 2. Normal left ventricle wall motion and ejection fraction. Electronically signed by: Gucci Pittman MD 08/25/2018 11:25 AM EDT
--- NOTE | 2018-08-25 11:47 | MB ---
cc: Sonia Root MD DATE: 08/25/2018 REASON FOR CONSULTATION: Chest pain. HISTORY OF PRESENT ILLNESS: Mr. Mcconnell is a 53-year-old man who does have a history of prior [place] and stents with the last one being placed in 2011. He also has a history of hypertension, hyperlipidemia and Crohn's disease. The patient reports he has had intermittent episodes of chest pain over the last several weeks. He described it as a subxiphoid process to me that was intermittent. He does report over the last several days, he has had problems with his Crohn's and associated nausea, vomiting. The patient is currently pain free. Of note, he also has had some yellow sputum production and diarrhea. PAST MEDICAL HISTORY: As per the HPI and also includes bipolar disorder, colitis, GERD. REVIEW OF SYSTEMS: Except as mentioned in the HPI, all 12 systems are negative. FAMILY HISTORY: Positive for CAD. SOCIAL HISTORY: The patient does smoke. OUTPATIENT MEDICATIONS: Does include aspirin. CURRENT MEDICATIONS: Per the record. PHYSICAL EXAMINATION: VITAL SIGNS: 98.0, 77, 16, 143/81. GENERAL: He is a well-appearing man, who is in no apparent distress. NECK: Free from JVD. LUNGS: Bilaterally clear to auscultation. CARDIOVASCULAR: He has a normal S1 and S2. I did not appreciate any murmurs, rubs or gallops. ABDOMEN: Soft. EXTREMITIES: Free from edema. LABORATORY DATA: EKG shows normal sinus rhythm without any acute ST changes. Laboratory values are significant for serial troponins of less than 0.02. His LDL is noted to be 138 and liver enzymes are normal. IMPRESSION: Chest pain - the patient is having chest pain that does not really appear to be cardiac. He nonetheless does have cardiovascular risk factors and prior coronary disease. Thus, I do agree with further evaluation with a nuclear stress test. If the study is nonischemic, I would continue with medical therapy. The patient has been on aspirin. His blood pressure has been a bit marginal today. I am not sure if this is secondary to dehydration. If he needs an antihypertensive, I would add a beta srini. As well, he may benefit from a statin provided he can get some ongoing care as he is uninsured. MD OLIVER Vicente/ct , 10:35 AM , 10:42 AM
[2018-08-25] MEDS: Famotidine 20 MG Tablet PO SCH ×2 (11:57→21:18)
[2018-08-25] MEDS: Metoprolol Tartrate 25 MG Tablet PO SCH (11:57)
[2018-08-25] MEDS: Insulin NovoLOG Aspart Correctional Sugar Inj SQ SCH ×2 (12:48→17:14)
[2018-08-25] MEDS: Sod Chloride 0.9% Inj 1,000 ML IV.CONT SCH (15:25)
--- NOTE | 2018-08-26 00:06 | ECG ---
Date Performed: 08/25/2018 Time Performed: 03:02:34 PTAGE: 53 years EKG: Sinus rhythm NORMAL ECG PREVIOUS TRACING : 08/24/2018 20.55 DOCTOR: Adolfo Parmar Interpretating Date/Time 08/26/2018 00:05:31
--- NOTE | 2018-08-26 00:25 | ECG ---
Date Performed: 08/24/2018 Time Performed: 20:55:46 PTAGE: 53 years EKG: Sinus rhythm NORMAL ECG PREVIOUS TRACING : 08/24/2018 12.42 DOCTOR: Adolfo Parmar Interpretating Date/Time 08/26/2018 00:25:04
--- NOTE | 2018-08-26 01:03 | ECG ---
Date Performed: 08/24/2018 Time Performed: 12:42:05 PTAGE: 53 years EKG: Sinus rhythm NORMAL ECG PREVIOUS TRACING : 05/19/2017 14.28 DOCTOR: Adolfo Parmar Interpretating Date/Time 08/26/2018 01:01:52
[2018-08-26] MEDS: Metoprolol Tartrate 25 MG Tablet PO SCH ×2 (02:09→10:17)
[2018-08-26] MEDS: Insulin NovoLOG Aspart Correctional Sugar Inj SQ SCH ×4 (02:31→17:49)
--- NOTE | 2018-08-26 08:29 | P.PN ---
Subjective Interval history: Follow-up on patient with chest pain. Patient seen and examined. Patient reports continued intermittent left-sided chest pain last night. He also states he has had several loose stools. He denies any fever or chills. He complains of cough with whitish sputum production. He denies any nausea, vomiting or abdominal pain. Physical Exam Vital signs: Vital Signs 08/25/18 11:41 08/25/18 15:48 08/25/18 19:56 Temperature 97.8 F 97.9 F 99 F Pulse Rate 72 67 69 Respiratory Rate 20 20 18 Blood Pressure 120/72 122/69 103/68 Pulse Oximetry 95 97 96 08/25/18 20:00 08/26/18 00:00 08/26/18 04:00 Temperature 99 F 98.9 F 98.3 F Pulse Rate 70 68 Respiratory Rate 18 18 18 Blood Pressure 103/68 120/77 136/79 Pulse Oximetry 96 94 L 98 08/26/18 07:59 Temperature 97.7 F Pulse Rate 79 Respiratory Rate 20 Blood Pressure 108/59 L Pulse Oximetry 93 L Intake & Output 08/25/18 08/26/18 08/26/18 18:59 06:59 18:59 Intake Total 0 / 0 Balance 0 / 0 Weight 74.843 kg Intake: Oral 0 / 0 Other: # Voids 2 1 Date of Last Bowel Movement 08/24/18 Narrative: GENERAL: WDWN male patient, INAD. Awake and alert. Appears comfortable. SKIN: Warm and dry. No generalized rash. HEENT: Atraumatic. Normocephalic. Pupils equal and round. No scleral icterus. No injection or drainage. No nasal bleeding or discharge. Mucous membranes pink and moist. NECK: Trachea midline. CARDIOVASCULAR: Regular rate and rhythm. RESPIRATORY: No accessory muscle use. +Rhonchi and mild wheezing noted in bilateral lower lung dias. GASTROINTESTINAL: Abdomen soft, non-tender, nondistended. +BS. MUSCULOSKELETAL: Extremities without clubbing, cyanosis, or edema. No obvious deformities. NEUROLOGICAL: Awake and alert. No obvious cranial nerve deficits. Motor grossly within normal limits. Able to move all extremities spontaneously. Normal speech. PSYCHIATRIC: Appropriate mood and affect; insight and judgment normal. Results - Labs CBC & Chem 7: 08/26/18 09:26 08/26/18 09:26 Laboratory Results - last 24 hr 08/24/18 08/25/18 08/25/18 21:34 11:59 16:18 POC Glucose 217 H 136 H Hemoglobin A1c 8.0 H 08/25/18 08/26/18 08/26/18 21:21 02:14 07:33 POC Glucose 127 H 137 H 144 H Hemoglobin A1c - Imaging Impressions Myocardial Perfusion Scan Nuc [facility] 08/25/18 00:00 CONCLUSION: 1. There is a moderate size reversible perfusion defect involving the anterior and anterior septal wall of the mid left ventricle and apex. Findings are suspicious for stress-induced ischemia. 2. Normal left ventricle wall motion and ejection fraction. Assessment and Plan - Plan 53yo male with a PMHX significant for CAD with hx of previous CT and cardiac stents x 3, the last one placed in 2011, hypertension, dyslipidemia, GERD, UC and hx of C diff who presents to [facility] ED with complaints of chest pain. Chest pain r/o ACS CAD s/p previous CT and hx of cardiac stents x 3 Medication noncompliant Trops neg x 3 Echo 2015 EF 55-60% Lexiscan with moderate sized reversible perfusion defect involving the anterior and anterior septal wall of the mid left ventricle and apex -Cardiology following, appreciate assistance. Plan for cardiac catheterization in the morning. NPO after MN. -Continue on Asa, lipitor and BB daily -continuous cardiac monitoring -Nitro prn chest pain Acute bronchitis CXR shows no acute cardiopulmonary abnormality, images reviewed by me Rivera scheduled -Mucinex BID -Tessalon perles prn cough -IS and acapella Hypertension Dyslipidemia noncompliant with medications due to lack of funding -continue on low dose BB Metoprolol 12.5mg BID -started on Lipitor 40mg daily, continue -monitor BP and adjust treatment accordingly DM, type 2, newly diagnosed HgbA1c 8.0 -Consult dietitian for diabetic education -Accu-Cheks and insulin sliding scale -Cardiac diabetic diet ordered GERD hx of C diff Patient reports loose stools -C diff ordered -Pepcid 20mg BID DVT prophylaxis -bilateral SCDs/MARY LOU hose Code Status: Full Discussed Condition With: patient, nursing staff, Dr. Hamilton Discharge Planning: Not ready for discharge. Awaiting cardiac catheterization in the am.
--- NOTE | 2018-08-26 09:24 | XR ---
EXAM DATE: 08/26/2018 9:12 AM EDT AGE/SEX: 53 years / Male INDICATIONS: Cough, congestion, and sporadic midline chest pain. CLINICAL DATA: This is the patient's subsequent encounter. Patient reports that signs and symptoms h ave been present for 2 weeks and indicates a pain score of 5/10. MEDICAL/SURGICAL HISTORY: Myocardial infarction. Ulcerative colitis. Hypertension. . Cardiac s tents. . [place] [facility] [place]. . FINDINGS: Portable AP view of the chest demonstrates a normal-sized cardiac silhouette. No effusion, consolidat ion, or pneumothorax is identified. The bones and soft tissues demonstrate no acute finding. Lungs ar e mildly underinflated. CONCLUSION: No acute cardiopulmonary abnormality is identified. Electronically signed by: Gucci Pittman MD 08/26/2018 9:23 AM EDT
[2018-08-26] MEDS ORDERED: Benzonatate 100 MG Capsule PO PRN (10:00)
[2018-08-26 10:02] LABS: Baso % (Auto) 0.4 % (0.0-2.0); Eos # (Auto) 0.2 th/mm3 (0.0-0.4); Eos % (Auto) 2.3 % (0.0-4.0); Hematocrit 45.6 % (39.0-51.0); Hemoglobin 16.1 gm/dL (13.0-17.0); Lymph # (Auto) 3.2 th/mm3 (1.0-4.8); Mean Corpuscular HGB Conc 35.3 % (32.0-36.0); Mean Corpuscular Hemoglobin 30.4 pg (27.0-34.0); Mean Corpuscular Volume 86.3 fL (80.0-100.0); Mean Platelet Volume 7.9 fL (7.0-11.0); Mono # (Auto) 0.6 th/mm3 (0.0-0.9); Mono % (Auto) 6.7 % (0.0-8.0); Neut # (Auto) 4.9 th/mm3 (1.8-7.7); Neut % (Auto) 54.6 % (16.0-70.0); Platelet Count 272 th/mm3 (150-450); Red Blood Count 5.29 mil/mm3 (4.50-5.90); Red Cell Distribution Width 13.1 % (11.6-17.2); White Blood Count 8.9 th/mm3 (4.0-11.0)
[2018-08-26] MEDS: Famotidine 20 MG Tablet PO SCH ×2 (10:15→20:39)
[2018-08-26 10:31] LABS: Anion Gap 10 meq/L (5-15); Blood Urea Nitrogen 18 mg/dL (7-18); Calcium 8.4 mg/dL (8.5-10.1); Carbon Dioxide 24.4 meq/L (21.0-32.0); Chloride 102 meq/L (98-107); Glomerular Filtration Rate Greater Than 89 mL/min (>89); Glucose,Random 164 mg/dL (74-106); Potassium 3.7 meq/L (3.5-5.1); Sodium 136 meq/L (136-145)
--- NOTE | 2018-08-26 13:04 | MB ---
cc: Abbe Segura MD DATE: 08/26/2018 REASON FOR CONSULTATION: Interventional consult to evaluate for cardiac catheterization. HISTORY OF PRESENT ILLNESS: Gucci Mcconnell is a 53-year-old man with multiple medical problems. Unfortunately, he does not have health insurance and does not take any medications for his multiple health problems. The patient is known to have severe coronary artery disease. He had a heart attack at age 44 and had stents of his LAD. This was in 2008, that was done in [place], we do have specific records. A second catheterization procedure here was by Dr. Felipe after he had a hip fracture, that was 07/29/2013. His LAD stent has only had 20% mid disease. His right coronary artery had a 99% proximal to mid stenosis, which was treated with a 4.0 x 18 mm bare-metal Integrity stent. He comes in now with intermittent chest pain, today is also having bronchitis, he says, with a recent cold. He is coughing and spitting up sputum into a bucket. He says he has chest congestion and chest pressure, including an episode today. He underwent a nuclear stress test, which was intermediate risk positive for anteroapical ischemia. He has seen Dr. Root, and the patient has been referred to me for cardiac catheterization. Of note, the patient is newly diagnosed with a full blown type 2 diabetes; his hemoglobin A1c is 8.0. He is also diagnosed with severe mixed hyperlipidemia with a cholesterol 248, triglycerides of 351, HDL 39.7, and LDL 138. Unfortunately, even though he works, he claims he does not have enough money to buy any medications and this has been true and every time he has come into the hospital, which is multiple occasions. He always comes in on no medications except an aspirin a day. PAST MEDICAL HISTORY: Includes ulcerative colitis diagnosed in 1986. He has had more than one colonoscopy here. Previous right hip fracture with a nail placed 2012. Previous right wrist fracture that was required and open reduction and internal fixation. Previous mention of fatty liver disease. He has had previous lower GI bleeding in 2012. ALLERGIES: PENICILLIN. PSYCHIATRIC HISTORY: He has psychiatric disease; he tried to attempt a Tylenol overdose in 2012. He has been diagnosed with depression and also bipolar disease. FAMILY HISTORY: Not clear for coronary artery disease. SOCIAL HISTORY: He is single. He works in [place] of the local [place]. He smokes pot intermittently. He has had previous different substance abuse, but now has only occasional marijuana. PHYSICAL EXAMINATION: GENERAL: Well-developed, well-nourished white male, who does not appear to be in acute distress. He is coughing frequently and spitting up sputum. HEENT: Unremarkable. NECK: Shows no JVD. No bruits. CHEST: Clear to auscultation. CARDIOVASCULAR: Shows normal S1, S2. Regular rate and rhythm. No murmurs or gallops. ABDOMEN: Soft, nontender. EXTREMITIES: No clubbing, cyanosis or edema. LABORATORY DATA: EKG shows sinus rhythm without acute ST-T wave changes, troponins are negative. His hemoglobin A1c was 8.0, cholesterol 248, triglycerides 351, HDL 39.7, LDL 138. His chest x-ray from this morning did not report any infiltrates or acute disease. ASSESSMENT: A 53-year-old male with unstable angina. He has an abnormal nuclear stress test. The patient is known to have severe coronary artery disease with LAD disease showing up at age 44. He is now age 53. He has had untreated hyperlipidemia. He has had untreated type 2 diabetes. High likelihood of coronary artery disease progression. He has already had 2 different coronary vessels done. PLAN: Perform diagnostic cardiac catheterization tomorrow. I would not be surprised if he has multivessel disease and might require bypass surgery. Alternatively, he might have disease that we can manage medically or treat with a stent. Informed consents have been obtained for a cath and possible intervention. Primary service is being contacted to manage his bronchitis. He needs to be taking medications chronically as an outpatient, but looks fairly hopeless looking at the records we have documented here going back many years. If he can qualify for Medicaid or some other support where he could get medications, that would be helpful. I will be faced with a complex decision if his bare metal stent was restenosed; usually I would want to put a drug-eluting stent inside of that. Plavix is not that expensive, but this patient has shown a propensity to not take medications, which will make things very challenging. Further therapy to be determined. MD ANTOLIN Lutz/minal , 09:57 AM , 10:07 AM
[2018-08-26] MEDS: Sod Chloride 0.9% Inj 1,000 ML IV.CONT SCH (15:32)
[2018-08-26] MEDS: guaiFENesin 600 MG ER Tablet PO SCH (20:39)
[2018-08-27] MEDS: Insulin NovoLOG Aspart Correctional Sugar Inj SQ SCH ×4 (01:30→19:48)
[2018-08-27] MEDS: Metoprolol Tartrate 25 MG Tablet PO SCH ×3 (01:30→21:49)
[2018-08-27] MEDS ORDERED: diazePAM 5 MG Tablet PO SCH (05:00)
[2018-08-27] MEDS ORDERED: Aspirin 325 MG Tablet PO SCH (05:00)
[2018-08-27 06:18] LABS: Baso % (Auto) 0.6 % (0.0-2.0); Eos # (Auto) 0.1 th/mm3 (0.0-0.4); Eos % (Auto) 1.8 % (0.0-4.0); Hemoglobin 15.1 gm/dL (13.0-17.0); Lymph # (Auto) 2.8 th/mm3 (1.0-4.8); Lymph % (Auto) 37.1 % (9.0-44.0); Mean Corpuscular HGB Conc 34.3 % (32.0-36.0); Mean Corpuscular Hemoglobin 30.3 pg (27.0-34.0); Mean Corpuscular Volume 88.3 fL (80.0-100.0); Mean Platelet Volume 7.8 fL (7.0-11.0); Mono # (Auto) 0.6 th/mm3 (0.0-0.9); Neut % (Auto) 52.5 % (16.0-70.0); Platelet Count 283 th/mm3 (150-450); Red Blood Count 4.98 mil/mm3 (4.50-5.90); Red Cell Distribution Width 13.4 % (11.6-17.2); White Blood Count 7.6 th/mm3 (4.0-11.0)
[2018-08-27 06:43] LABS: Calcium 8.4 mg/dL (8.5-10.1); Carbon Dioxide 26.3 meq/L (21.0-32.0); Potassium 4.2 meq/L (3.5-5.1)
--- NOTE | 2018-08-27 07:43 | P.PN ---
Subjective Interval history: Follow up on patient with chest pain, abnormal Lexiscan. Patient seen and examined. Discussed with patient diabetic diagnosis. We will have the diesel engine pipe fitter educate him on diabetic diet. Patient is NPO for cardiac catheterization later this morning. He continues to have intermittent chest pain. He reports his cough has improved. He still has whitish sputum production. He denies any fever or chills. He denies any shortness of breath. Physical Exam Vital signs: Vital Signs 08/26/18 07:59 08/26/18 09:11 08/26/18 11:44 Temperature 97.7 F 98.3 F Pulse Rate 79 80 75 Respiratory Rate 20 15 16 Blood Pressure 108/59 L 146/76 H Pulse Oximetry 93 L 95 08/26/18 16:02 08/26/18 19:37 08/26/18 20:00 Temperature 98.3 F Pulse Rate 75 84 Respiratory Rate 15 21 Blood Pressure 119/65 Pulse Oximetry 98 98 08/26/18 20:15 08/27/18 00:00 08/27/18 04:00 Temperature 98.3 F 97.3 F L Pulse Rate 68 71 70 Respiratory Rate 18 18 19 Blood Pressure 129/67 125/69 Pulse Oximetry 95 97 Intake & Output 08/26/18 08/27/18 08/27/18 18:59 06:59 18:59 Intake Total 995 / 995 0 / 0 Balance 995 / 995 0 / 0 Weight 74.843 kg Intake: IV 995 / 995 NS Inj 1,000 ML @ 42 mls/hr IV. 995 / 995 CONT .[id number] [facility] Rx#:[id number] Oral 0 / 0 Other: # Voids 3 Date of Last Bowel Movement 08/25/18 08/25/18 Weight On Admission 74.843 kg Narrative: GENERAL: WDWN male patient. Awake and alert. Appears comfortable. In no acute distress. SKIN: Warm and dry. No generalized rash. HEENT: Atraumatic. Normocephalic. Pupils equal and round. No scleral icterus. No injection or drainage. No nasal bleeding or discharge. Mucous membranes pink and moist. NECK: Trachea midline. CARDIOVASCULAR: Regular rate and rhythm. RESPIRATORY: No accessory muscle use. Lungs clear to auscultation bilaterally. No wheezing or rhonchi. GASTROINTESTINAL: Abdomen soft, non-tender, nondistended. +BS. MUSCULOSKELETAL: Extremities without clubbing, cyanosis, or edema. No obvious deformities. NEUROLOGICAL: Awake and alert. No obvious cranial nerve deficits. Motor grossly within normal limits. Able to move all extremities spontaneously. Normal speech. PSYCHIATRIC: Appropriate mood and affect; insight and judgment normal. Results - Labs CBC & Chem 7: 08/27/18 06:00 08/27/18 06:00 Laboratory Results - last 24 hr 08/26/18 08/26/18 08/26/18 09:26 09:26 09:26 WBC 8.9 RBC 5.29 Hgb 16.1 Hct 45.6 MCV 86.3 MCH 30.4 MCHC 35.3 RDW 13.1 Plt Count 272 MPV 7.9 Neut % (Auto) 54.6 Lymph % (Auto) 36.0 Weld % (Auto) 6.7 Eos % (Auto) 2.3 Baso % (Auto) 0.4 Neut # (Auto) 4.9 Lymph # (Auto) 3.2 Weld # (Auto) 0.6 Eos # (Auto) 0.2 Baso # (Auto) 0.0 WBC Differential . Differential Comment Auto diff final Sodium 136 Potassium 3.7 Chloride 102 Carbon Dioxide 24.4 Anion Gap 10 BUN 18 Creatinine 0.84 Estimated GFR Greater than 89 POC Glucose Random Glucose 164 H Calcium 8.4 L B-Natriuretic Peptide 3 08/26/18 08/26/18 08/27/18 12:57 17:47 01:16 WBC RBC Hgb Hct MCV MCH MCHC RDW Plt Count MPV Neut % (Auto) Lymph % (Auto) Weld % (Auto) Eos % (Auto) Baso % (Auto) Neut # (Auto) Lymph # (Auto) Weld # (Auto) Eos # (Auto) Baso # (Auto) WBC Differential Differential Comment Sodium Potassium Chloride Carbon Dioxide Anion Gap BUN Creatinine Estimated GFR POC Glucose 161 H 146 H 144 H Random Glucose Calcium B-Natriuretic Peptide 08/27/18 08/27/18 08/27/18 06:00 06:00 06:13 WBC 7.6 RBC 4.98 Hgb 15.1 Hct 44.0 MCV 88.3 MCH 30.3 MCHC 34.3 RDW 13.4 Plt Count 283 MPV 7.8 Neut % (Auto) 52.5 Lymph % (Auto) 37.1 Weld % (Auto) 8.0 Eos % (Auto) 1.8 Baso % (Auto) 0.6 Neut # (Auto) 4.0 Lymph # (Auto) 2.8 Weld # (Auto) 0.6 Eos # (Auto) 0.1 Baso # (Auto) 0.0 WBC Differential . Differential Comment Auto diff final Sodium 135 L Potassium 4.2 Chloride 102 Carbon Dioxide 26.3 Anion Gap 7 BUN 16 Creatinine 0.91 Estimated GFR 87 L POC Glucose 141 H Random Glucose 160 H Calcium 8.4 L B-Natriuretic Peptide - Imaging Impressions Chest X-Ray 08/26/18 00:00 CONCLUSION: No acute cardiopulmonary abnormality is identified. Assessment and Plan - Plan 53yo male with a PMHX significant for CAD with hx of previous TX and cardiac stents x 3, the last one placed in 2011, hypertension, dyslipidemia, GERD, UC and hx of C diff who presents to [facility] ED with complaints of chest pain. Chest pain r/o ACS CAD s/p previous TX and hx of cardiac stents x 3 Medication noncompliant Trops neg x 3 Echo 2015 EF 55-60% Lexiscan with moderate sized reversible perfusion defect involving the anterior and anterior septal wall of the mid left ventricle and apex -Cardiology following, appreciate assistance. Plan for cardiac catheterization today. Keep NPO. IVF running. -Continue on Asa, lipitor and BB daily -continuous cardiac monitoring -Nitro prn chest pain Acute bronchitis, improved CXR shows no acute cardiopulmonary abnormality, images reviewed by me Rivera scheduled -Mucinex BID -Tessalon perles prn cough -IS and acapella Hypertension Dyslipidemia noncompliant with medications due to lack of funding -continue on low dose BB Metoprolol 12.5mg BID -started on Lipitor 40mg daily, continue -monitor BP and adjust treatment accordingly DM, type 2, newly diagnosed HgbA1c 8.0 BS running mid 100s -Consult dietitian for diabetic education -Accu-Cheks and insulin sliding scale -Cardiac diabetic diet once no longer NPO -may benefit from initiation of Metformin but will hold off for now due to cardiac cath -patient will need repeat HgbA1c in 3 mos as outpatient GERD hx of C diff Patient reports loose stools -C diff ordered but no specimen as of yet -Pepcid 20mg BID DVT prophylaxis -bilateral SCDs/MARY LOU hose Code Status: Full Discussed Condition With: patient, nursing staff, Dr. Hamilton Discharge Planning: Not ready for discharge. Cardiac catheterization this morning.
[2018-08-27] MEDS: Sod Chloride 0.9% Inj 1,000 ML IV.CONT SCH ×3 (08:40→21:51)
[2018-08-27] MEDS: guaiFENesin 600 MG ER Tablet PO SCH ×2 (08:51→21:49)
[2018-08-27] MEDS ORDERED: Heparin/NS PF Inj 1,500 ML ONE (09:01)
[2018-08-27] MEDS ORDERED: Heparin 10,000 UNITS/10 ML Vial (for IV use) ONE (09:01)
[2018-08-27] MEDS ORDERED: Lidocaine PF 1% Inj 30 ML Vial ONE (09:10)
[2018-08-27] MEDS ORDERED: fentaNYL Citrate Inj 100 MCG/2 ML Ampul ONE (09:11)
[2018-08-27] MEDS ORDERED: Morphine Inj 4 MG/ML Vial IV.PUSH PRN (11:10)
[2018-08-27] MEDS ORDERED: oxyCODONE/Acetaminophen 10/325 Tablet PO PRN (11:10)
--- NOTE | 2018-08-27 11:35 | CATHPROC ---
[employer] HIS Report Study Information Study Number Admission Scheduled Start Study Start [id number] Aug 24 2018 7:02PM 08/27/2018 Aug 27 2018 8:58AM [facility] Electrophysiology Study Admit Source Facility Department Emergency department [facility] - Instructional Design Consultant Physician and Clinical Staff Initial Abbe Neil Criminal Analyst Mauro Zurita,RN Criminal Analyst Elmer Cabral,LOYDA Recorder Cata Marx,HIGH VALUE ASSOCIATE TECH2 Scrub Klaudia Betancourt ,RT(R) Procedures Performed Procedure Location (Site) Vessel Name Coronary Angiograms LCA Left Coronary Coronary Angiograms RCA Right Coronary LV Gram-hand inj. LV LV Ventricle PTCA LAD Mid Left Coronary Stent LAD Mid Left Coronary Stent LAD Prox Left Coronary Wire insertion Radial (right) Radial Art. Equipment Time Technician Automated Equipment Description Size Mfg Part Number Used/Scraped WIRE, BALANCE MIDDLEWEIGHT [id number] 10:10 [facility] [employer] 190CM Used 190CM *[id number] TRANSDUCER, TRUWAVE [id number] 09:09 ECHEVERRIA MARIEE * Used W/STOCKCOCK *[id number] 09:09 MALLINCKRODT SYRINGE, ANGIOMAT 150ML 150ML *[id number] Used 2SUB [id number] 09:09 POPVOX BLANKET,WARM AIR CCL * Used *[id number] 09:09 POPVOX PACK, CCL CUSTOM * Used *[id number] 09:09 POPVOX SUPPORT, ARTERIAL ADULT 06408 *[id number] Used [id number] 09:09 Appature PACER PEN, SKIN DUAL W/ RULER * Used *[id number] 10:20 MEDTRONIC BALLOON, 2.5 X 20MM EUPHORA 20MM Used *[id number] BALLOON, 3.5 X 15MM NC [id number] 10:53 MEDTRONIC 15MM Used EUPHORA *[id number] 10:25 MEDTRONIC STENT, 3.0 26 INTEGRITY 3.0 26 Used *[id number] [id number] 10:37 MEDTRONIC STENT, 3.5 18 INTEGRITY 3.5 18 Used *[id number] [id number] 10:44 MEDTRONIC STENT, 3.5 9 INTEGRITY 3.5 9 Used *[id number] [id number] 09:53 MEDTRONIC/AVE EBU 3.5 Z2 GUIDE CATHETER FR 6 Used *[id number] 10:23 MERIT [employer]ICAL 30 FANNY INDEFLATOR Used *[id number] BAND, RADIAL COMPRESSION TR [id number] 10:58 [employer] MEDICAL 24CM Used SHORT 24 *2925901 10:04 [employer]ix PACK, ANGIOPLASTY * [id number] Used [id number] 09:53 [employer]ix WIRE, EXCHANGE 260CM 3MMJ 260CM Used *[id number] [id number] 09:09 [employer]ix WIRE, EXCHANGE 260CM 3MMJ 260CM Used *[id number] 09:09 NAMIC MANIFOLD, 4 PORT * Used *0476719 09:09 NYCOMED OMNIPAQUE, 350 MG, 100ML 100ML [id number] Used 09:09 Berg JELCO NEEDLE 4056 *[id number] Used CATHETER, FR5 OPTITORQUE [id number] 09:44 Medlumics FR 5 Used RADIAL TIG 4.0 *[id number] SHEATH, FR6 TRANSRADIAL [id number] 09:09 Medlumics FR 6 Used SLENDER 10CM *[id number] Equipment Model, Serial, Lot Number and Expiration Data Description Model Number Serial Number Lot Number Expiration Date STENT, 3.0 26 INTEGRITY [id number] 05-01-2019 STENT, 3.5 18 INTEGRITY [id number] 03-18-2020 STENT, 3.5 9 INTEGRITY [id number] 08-15-2019 WIRE, EXCHANGE 260CM 3MMJ [id number] 05-29-2021 History: Allergies Allergy Reaction Penicillin Anaphylaxis penicillin G Anaphylaxis History: Risk Factors Family History of Hypertension Dyslipidemia Previous WI Previous Heart Failure Premature CAD Yes Yes Yes Yes No Prior Valve Prior PCI Prior PCIDate Prior CABG Surgery No Yes 10/30/2012 No Cerebrovascular Peripheral Artery Chronic Lung On Dialysis Diabetes Diabetes Therapy Disease Disease Disease No No No No Yes None History: Symptoms/Diagnosis Selection Items Chest pain History: CV Disease Selection Items Known CAD WI History: Stress Tests Stress or Imaging Studies Performed Yes Standard Exercise Stress Test No Stress Echo No Stress Test SPECT Stress Test SPECT Result Stress Test SPECT Ischemia Risk/Extent Yes Positive Intermediate Stress Test CMR No Cardiac CTA Coronary Calcium Score No No History: Other Disease Selection Items CAD Gerd History: WI/CV Data Previous WI Time 6 Years History: Other Current Smoker No Labs Hgb (g/dl) Hct (%) WBC (l/cumm) Platelets (thousands) 11.60-17.00 35.00-51.00 4.00-11.00 150.00-450.00 15.1 44 7.6 283 Glucose (mg/dl) BUN (mg/dl) Creatinine (mg/dl) BUN:Creatinine (1:x) 74.00-106.00 7.00-18.00 0.50-1.30 10.00-20.00 160 16 0.9 17.8 Na (meq/l) K (meq/l) Cl (meq/l) CO2 (mmol/L) Ca (mg/dl) 136.00-145.00 3.50-5.10 98.00-107.00 21.00-32.00 8.50-10.10 135 4.2 102 26.3 8.4 Troponin I (ng/ml) CPK-MB (ng/ML) 0.02-0.05 0.50-3.60 0.02 Not Drawn Medication Medication Total Dose (Bolus/Oral) Medication Total Dosage/Unit 1% XYLOCAINE 5 mL FENTANYL 25 mcg HEPARIN 4000 units MORPHINE 16 mg NTG (IC) 200 mcg PLAVIX 600 mg RADIAL COCKTAIL 5 mL (Bolus) VERSED 3 mg ZOFRAN 4 mg Medications (Bolus/Oral) Medication Time Given Dosage/Unit Administered By Reason VERSED 08/27/2018 9:29:38 AM 1 mg Parminder, Muaro 1 mg VERSED given in lab by Mauro Zurita RN in Right Antecubital via Peripheral IV. Ordered by Abbe Heredia. VERSED 08/27/2018 9:30:51 AM 1 mg Parminder, Mauro 1 mg VERSED given in lab by Mauro Zurita RN in Right Antecubital via Peripheral IV. Ordered by Abbe Heredia. FENTANYL 08/27/2018 9:31:19 AM 25 mcg Parminder, Mauro 25 mcg FENTANYL given in lab by Mauro Zurita RN in Right Antecubital via Peripheral IV. Ordered by Abbe Glover. 1% XYLOCAINE 08/27/2018 9:31:32 AM 5 mL Abbe Segura 5 mL 1% XYLOCAINE given in lab by Abbe Segura in Right Radial via Subcutaneous. Ordered by Abbe Segura. Ntg 200mcg Verapamil 2.5mg Heparin RADIAL COCKTAIL 08/27/2018 9:41:35 AM 5 mL (Bolus) Abbe Segura 2500U 5 mL (Bolus) RADIAL COCKTAIL given in lab by Abbe Segura in Right Radial via Radial. Using [Shanika barreto Name]. Ordered by Abbe Segura. Reason: Ntg 200mcg Verapamil 2.5mg Heparin 2500U. VERSED 08/27/2018 9:42:53 AM 1 mg Parminder, Mauro 1 mg VERSED given in lab by Mauro Zurita RN in Right Antecubital via Peripheral IV. Ordered by Abbe Heredia. 08/27/2018 10:10:19 HEPARIN 4000 units Parminder, Mauro AM 4000 units HEPARIN given in lab by Mauro Zurita RN in Right Antecubital via Peripheral IV. Ordered b Abbe Ruff. 08/27/2018 10:22:03 NTG (IC) 100 mcg Abbe Segura AM 100 mcg NTG (IC) given in lab by Abbe Segura via Intra-coronary. Ordered by Abbe Segura. 08/27/2018 10:30:52 NTG (IC) 100 mcg Abbe Segura AM 100 mcg NTG (IC) given in lab by Abbe Segura via Intra-coronary. Ordered by Abbe Segura. 08/27/2018 10:34:07 MORPHINE 3 mg Parminder, Mauro AM 3 mg MORPHINE given in lab by Muaro Zurita RN in Right Antecubital via Peripheral IV. Ordered by Abbe Wood. 08/27/2018 10:43:11 MORPHINE 3 mg Abbe Segura AM 3 mg MORPHINE given in lab by Abbe Segura in Right Antecubital via Peripheral IV. Ordered by Abbe Segura. 08/27/2018 10:45:19 MORPHINE 3 mg Parminder, Mauro AM 3 mg MORPHINE given in lab by Mauro Zurita RN in Right Antecubital via Peripheral IV. Ordered by Abbe Wood. 08/27/2018 10:55:19 MORPHINE 3 mg Parminder, Mauro AM 3 mg MORPHINE given in lab by Mauro Zurita RN in Right Antecubital via Peripheral IV. Ordered by Abbe Wood. 08/27/2018 11:03:40 PLAVIX 600 mg Parminder, Mauro AM 600 mg PLAVIX given in lab by Mauro Zurita RN via Oral. Ordered by Abbe Segura. 08/27/2018 11:07:17 MORPHINE 4 mg Parminder, Mauro AM 4 mg MORPHINE given in lab by Mauro Zurita RN in Right Antecubital via Peripheral IV. Ordered by Abbe Wood. 08/27/2018 11:14:09 ZOFRAN 4 mg Parminder, Mauro AM 4 mg ZOFRAN given in lab by Mauro Zurita RN in Right Antecubital via Peripheral IV. Ordered by Abbe Heredia. Medication (Drip) Medication Time Given Dosage/Unit Concentration/Unit Diluent (ml) Solution IV Solutions 08/27/2018 8:58:58 AM 0 mL (IV) 1000 NaCl .9 Patient arrived on IV Solutions in Right Antecubital via Peripheral IV. Pump/Drip Flow = 20 ml/hr usi ng NaCl .9. Initial Case Assessment Cardiovascular HR Rhythm NIBP Chest Pain 75 sr 145/84 0 Circulatory - Right Pulses Dorsalis Pedis Femoral Radial 3 2 2 Scale (0,1,2,3,4,d) Circulatory - Left Pulses Dorsalis Pedis Femoral Radial 3 2 Scale (0,1,2,3,4,d) Neurological State Oriented to time-place- Alert Moves all extremities person Respiration - General Respiration Rate SpO2 (%) (B/min) 20 95 Final Case Assessment Cardiovascular HR Rhythm NIBP Chest Pain 72 sr 154/92 8 Circulatory - Right Pulses Dorsalis Pedis Femoral Radial 3 2 2 Scale (0,1,2,3,4,d) Circulatory - Left Pulses Dorsalis Pedis Femoral Radial 3 Scale (0,1,2,3,4,d) Neurological State Oriented to time-place- Alert Moves all extremities person Respiration - General Respiration Rate SpO2 (%) (B/min) 18 98 Chronological Log Time Study Chronological Log 8:54:46 Patient arrived via Bed. 8:54:51 Patient Name, D.O.B, / Armband Verified By R.N. 8:57:56 Consent signed by the physician and the patient and verified by the Instructional Design Consultant staff. 8:57:57 Pre-op and post- op instructions given; patient acknowledges understanding of instructions. 8:57:58 Verbal Stimulation=2 Physical Stimulation=2 Airway=2 Respiration=2 TOTAL=8. (0=absent, 1=paez ited, 2=present) 8:58:40 Presedation assessment performed by Instructional Design Consultant RN. 8:58:42 Allens test performed on the right radial and ulnar artery. 8:58:44 Patient has been NPO for More than 6Hrs. 8:58:44 Skin Breakdown-none 8:58:47 Dalton Prominences Protected 8:58:49 A # 20 IV was noted in the Antecubital (right). Grade = 0 8:58:58 Patient arrived on IV Solutions in Right Antecubital via Peripheral IV. Pump/Drip Flow = 20 ml/hr using NaCl .9. 8:59:17 History and physical on the chart or being dictated. Vitals capture started with the following parameters, Patient=Adult, Interval=5 min, Initial Pre svcwy=107 mmHg, 9:00:07 Deflation Rate=5 mmHg, Cuff placed on Left Arm 9:00:39 HR=72 bpm, IWUP=772/86 mmhg, SpO2=93 %, Resp=0 B/min, Pain=0 9:05:42 HR=75 bpm, FYLC=857/84 mmhg, SpO2=94 %, Resp=13 B/min, Pain=0 9:08:06 Reference ECG taken Assessment: Initial Case, HR=75 BPM, Rhythm=sr, DLJT=883/84 mmhg, Chest Pain=0 Right Pulses: Joshua Ped=3, Femoral=2, Radial=2 9:09:35 Left Pulses: Joshua Ped=3, Femoral=2 Neurological: State=Alert, Ox3, PETERSON Respiration: Resp=20 B/min, SpO2=95 % 9:09:37 Right groin and right wrist prepped with 2% chlorhexidine, and draped after a 3 min. waiting time. 9:10:45 HR=76 bpm, APZZ=713/77 mmhg, SpO2=95.0 %, Resp=23 B/min, Pain=0 9:15:40 HR=80 bpm, GTBF=591/83 mmhg, SpO2=94.0 %, Resp=11 B/min, Pain=0 9:18:11 MD paged 9:20:45 HR=75 bpm, EATU=335/79 mmhg, SpO2=95.0 %, Resp=16 B/min 9:21:18 Pressure channel 2 zeroed. 9:25:15 MD arrived. 9:25:42 HR=75 bpm, HMHD=744/78 mmhg, SpO2=95.0 %, Resp=11 B/min Time Out. Correct patient, correct procedure, correct physician, labs, allergies, and equipment verified with shipyard laborer 9:29:02 team present. Fire risk assesment completed (see hard stop sheet for coding). Time Out Concu rred by MD and individual staff in procedure. 9:29:38 1 mg VERSED given in lab by Mauro Zurita RN in Right Antecubital via Peripheral IV. Ordered by Abbe Segura. 9:30:41 HR=78 bpm, JYVI=393/79 mmhg, SpO2=95.0 %, Resp=12 B/min 9:30:51 1 mg VERSED given in lab by Mauro Zurita RN in Right Antecubital via Peripheral IV. Ordered by Abbe Segura. 9:31:19 25 mcg FENTANYL given in lab by Mauro Zurita RN in Right Antecubital via Peripheral IV. Ord ered by Abbe Segura. 9:31:30 Case Start 9:31:32 5 mL 1% XYLOCAINE given in lab by Abbe Segura in Right Radial via Subcutaneous. Ordered by Abbe Segura. 9:35:19 The Criminal Analyst is being relieved by Elmer aCbral RN. 9:35:40 HR=84 bpm, GSVV=663/74 mmhg, SpO2=93.0 %, Resp=12 B/min 9:40:18 Access site was Right Radial Artery . Using ultrssound guidance 9:40:39 HR=82 bpm, JIAV=230/75 mmhg, SpO2=94.0 %, Resp=9 B/min 5 mL (Bolus) RADIAL COCKTAIL given in lab by Abbe Segura in Right Radial via Radial. Using [S olution Name]. 9:41:35 Ordered by Abbe Segura. Reason: Ntg 200mcg Verapamil 2.5mg Heparin 2500U. A SHEATH, FR6 TRANSRADIAL SLENDER 10CM FR 6 was advanced into the Radial (right) using the Perc utaneous 9:42:13 technique. 9:42:53 1 mg VERSED given in lab by Mauro Zurita RN in Right Antecubital via Peripheral IV. Ordered by Abbe Segura. A CATHETER, FR5 OPTITORQUE RADIAL TIG 4.0 FR 5 was advanced over a wire. OMNIPAQUE, 350 MG, 100 ML 100ML 9:43:14 was used for injections. 9:45:40 HR=88 bpm, CNVJ=102/72 mmhg, SpO2=91.0 %, Resp=14 B/min Recorded Pressure: Ao, HR=86, Condition=Condition 1 9:47:43 (Aorta) Ao 105/75/88 9:47:53 The LCA was injected and visualized at various angles. OMNIPAQUE, 350 MG, 100ML 100ML used. 9:49:31 The RCA was injected and visualized at various angles. OMNIPAQUE, 350 MG, 100ML 100ML used. 9:50:41 HR=81 bpm, DMEM=616/69 mmhg, SpO2=93 %, Resp=13 B/min 9:52:15 The LCA was injected and visualized at various angles. OMNIPAQUE, 350 MG, 100ML 100ML used. Recorded Pressure: LV, HR=82, Condition=Condition 1 9:54:34 (Left Ventricle) LV 116/0/7 9:54:47 The LV was manually injected with 10 cc's and visualized. OMNIPAQUE, 350 MG, 100ML 100ML use d. Recorded Pressure: LV, Ao, HR=82, Condition=Condition 1 9:55:30 (Left Ventricle) LV 120/0/4, (Aorta) Ao 110/66/85 9:55:45 HR=82 bpm, XTSX=660/67 mmhg, SpO2=90 %, Resp=11 B/min After removing the current catheter a EBU 3.5 Z2 GUIDE CATHETER FR 6 was advanced over a WIRE, EXCHANGE 9:56:36 260CM 3MMJ 260CM. 9:58:55 The LCA was injected and visualized at various angles. OMNIPAQUE, 350 MG, 100ML 100ML used. 10:00:46 HR=77 bpm, NYWB=135/68 mmhg, SpO2=92 %, Resp=13 B/min 10:05:47 HR=72 bpm, RATT=297/62 mmhg, SpO2=90.0 %, Resp=8 B/min 10:09:31 The Criminal Analyst is being relieved by Mauro Zurita RN . 10:10:19 4000 units HEPARIN given in lab by Mauro Zurita RN in Right Antecubital via Peripheral IV. Ordered by Abbe Segura. 10:10:48 HR=75 bpm, PECZ=506/69 mmhg, SpO2=94.0 %, Resp=16 B/min 10:11:09 A WIRE, BALANCE MIDDLEWEIGHT 190CM 190CM was inserted via Radial (right). 10:12:49 Wire removed, reshaped and reinserted to LAD. 10:15:47 HR=74 bpm, POEL=482/71 mmhg, SpO2=93 %, Resp=16 B/min 10:16:35 Interventional wire has crossed the lesion 10:20:44 HR=73 bpm, QACJ=304/79 mmhg, SpO2=95 %, Resp=15 B/min 10:20:59 ACT (Normal Range 90-180) = 589 10:21:00 Activated Clotting Time Drawn 10:22:03 100 mcg NTG (IC) given in lab by Abbe Segura via Intra-coronary. Ordered by Abbe Segura . A BALLOON, 2.5 X 20MM EUPHORA 20MM was inserted over WIRE, BALANCE MIDDLEWEIGHT 190CM 190CM via the 10:22:38 LAD Mid. A BALLOON, 2.5 X 20MM EUPHORA 20MM over a WIRE, BALANCE MIDDLEWEIGHT 190CM 190CM in the LAD Mid was 10:23:02 inflated using a 30 FANNY INDEFLATOR at 12 fanny for 30 sec. A BALLOON, 2.5 X 20MM EUPHORA 20MM over a WIRE, BALANCE MIDDLEWEIGHT 190CM 190CM in the LAD Mid was 10:24:06 inflated using a 30 FANNY INDEFLATOR at 12 fanny for 25 sec. 10:25:25 Balloon Removed. 10:25:49 HR=80 bpm, PDDN=782/61 mmhg, SpO2=91.0 %, Resp=15 B/min An STENT, 3.0 26 INTEGRITY 3.0 26 Bare Metal Stent was inserted through a EBU 3.5 Z2 GUIDE CATH ETER FR 6 over 10:26:59 a WIRE, BALANCE MIDDLEWEIGHT 190CM 190CM. A STENT, 3.0 26 INTEGRITY 3.0 26 was deployed using a 30 FANNY INDEFLATOR at 12 atmospheres for 3 0 seconds in 10:28:16 the LAD Mid. 10:29:36 Delivery device removed 10:30:46 HR=77 bpm, ZXII=726/76 mmhg, SpO2=93.0 %, Resp=19 B/min 10:30:52 100 mcg NTG (IC) given in lab by Abbe Segura via Intra-coronary. Ordered by Abbe Segura . 10:31:01 Activated Clotting Time Drawn 10:34:07 3 mg MORPHINE given in lab by Mauro Zurita RN in Right Antecubital via Peripheral IV. Orde red by Abbe Segura. 10:35:49 HR=72 bpm, DMWP=827/70 mmhg, SpO2=95.0 %, Resp=18 B/min An STENT, 3.5 18 INTEGRITY 3.5 18 Bare Metal Stent was inserted through a EBU 3.5 Z2 GUIDE CATH ETER FR 6 over 10:38:02 a WIRE, BALANCE MIDDLEWEIGHT 190CM 190CM. A STENT, 3.5 18 INTEGRITY 3.5 18 was deployed using a 30 FANNY INDEFLATOR at 18 atmospheres for 2 4 seconds in 10:39:56 the LAD Prox. 10:40:48 HR=62 bpm, SLMG=472/71 mmhg, SpO2=95.0 %, Resp=16 B/min 10:41:36 Re-inflated the stent balloon in the LAD Mid to 18 FANNY for 27 seconds. 10:42:07 Delivery device removed 10:43:11 3 mg MORPHINE given in lab by Abbe Segura in Right Antecubital via Peripheral IV. Ordered by Abbe Segura. An STENT, 3.5 9 INTEGRITY 3.5 9 Bare Metal Stent was inserted through a EBU 3.5 Z2 GUIDE CATHET ER FR 6 over a 10:44:57 WIRE, BALANCE MIDDLEWEIGHT 190CM 190CM. 10:45:19 3 mg MORPHINE given in lab by Mauro Zurita RN in Right Antecubital via Peripheral IV. Orde red by Abbe Segura. 10:45:47 HR=68 bpm, UHSW=217/77 mmhg, SpO2=96.0 %, Resp=21 B/min A STENT, 3.5 9 INTEGRITY 3.5 9 was deployed using a 30 FANNY INDEFLATOR at 14 atmospheres for 22 seconds in the 10:46:50 LAD Mid. 10:47:42 Re-inflated the stent balloon in the LAD Mid to 16 FANNY for 16 seconds. 10:49:18 Delivery device removed 10:50:50 HR=67 bpm, WBML=784/78 mmhg, SpO2=97.0 %, Resp=18 B/min A BALLOON, 3.5 X 15MM NC EUPHORA 15MM was inserted over WIRE, BALANCE MIDDLEWEIGHT 190CM 190CM via 10:51:53 the LAD Mid. A BALLOON, 3.5 X 15MM NC EUPHORA 15MM over a WIRE, BALANCE MIDDLEWEIGHT 190CM 190CM in the LAD Mid 10:53:02 was inflated using a 30 FANNY INDEFLATOR at 20 fanny for 22 sec. 10:53:48 Balloon Removed. 10:54:19 Wire and guide removed 10:55:19 3 mg MORPHINE given in lab by Mauro Zurita RN in Right Antecubital via Peripheral IV. Orde red by Abbe Segura. 10:55:27 Case End (Physician broke scrub) 10:56:30 HR=74 bpm, LYKO=302/87 mmhg, SpO2=96.0 %, Resp=25 B/min Radial Compression Device Used. 10 mLs of air placed in BAND, RADIAL COMPRESSION TR SHORT 24 24 CM. Affected 11:00:32 hand 98 % O2 saturation. 11:00:54 HR=68 bpm, VHJR=531/91 mmhg, SpO2=99.0 %, Resp=17 B/min 11:03:40 600 mg PLAVIX given in lab by Mauro Zurita RN via Oral. Ordered by Abbe Segura. 11:05:56 HR=72 bpm, EUTP=331/92 mmhg, SpO2=99.0 %, Resp=24 B/min 11:07:17 4 mg MORPHINE given in lab by Mauro Zurita RN in Right Antecubital via Peripheral IV. Orde red by Abbe Segura. Assessment: Final Case, HR=72 BPM, Rhythm=sr, KVAU=543/92 mmhg, Chest Pain=8 Right Pulses: Joshua Ped=3, Femoral=2, Radial=2 11:08:42 Left Pulses: Joshua Ped=3 Neurological: State=Alert, Ox3, PETERSON Respiration: Resp=18 B/min, SpO2=98 % 11:08:45 No case complications noted. 11:08:46 Cine recording checked. 11:08:52 Implantable Device card placed in patient's chart. 11:10:57 ZLZD=676/96 mmhg 11:13:05 Patient nauseated. 11:14:09 4 mg ZOFRAN given in lab by Mauro Zurita, RN in Right Antecubital via Peripheral IV. Order ed by Abbe Segura. 11:15:36 Vitals capture stopped. 11:15:55 Patient moved to bed 11:16:47 Bedside Report will be given. 11:17:27 Patient transported to DOCU End Study - Contrast Media Used In Study Contrast Total Opened (mL) Total Used (mL) Total Wasted (mL) Omnipaque 230 230 0 End Study - Maximum Contrast Load Max Contrast Load (mL) 415.7 End Study - Radiation Exposure Fluoro Time Fluoro Dose (mGy) Cine Dose (uGym2) (minutes) 25.7 3050 91156 End Study - Sheaths Sheaths Pulled By Sheath Hold Time (min) Klaudia Betancourt End Study - Patient Disposition Complications Transferred To Interventional Outcome No Telemetry Bed successful
[2018-08-27] MEDS ORDERED: Misc Info for Pharmacy OTHER SCH (12:00)
--- NOTE | 2018-08-27 13:26 | MA ---
cc: Abbe Segura MD DATE: 08/27/2018 PROCEDURE PERFORMED: 1. Left heart catheterization. 2. Left ventriculography. 3. Coronary angiography. 4. Complex extensive stenting of the proximal and mid left anterior descending. 5. Right radial arterial access. DESCRIPTION OF PROCEDURE: The patient was brought to the cardiac catheterization lab in a fasting state. The right wrist was prepped and draped in sterile fashion. Using ultrasound guidance, a Terumo slender sheath was placed. Next, a [place] catheter was used for coronary angiography, LV pressure measurement and LV pullback. I then used a 6 English EBU guiding catheter to engage the left main. The LAD was then wired. I decided to stent the mid lesion first. I gave IV heparin with a therapeutic ACT achieved. I predilated the mid LAD with a 2.5 mm balloon and then stented it with a 3.0 x 26 mm Integrity stent at 12 atmospheres. The area proximal to this I thought also needed stented and I placed a 3.5 x 18 mm Integrity stent proximally and deployed this at 18 atmospheres. There was a slight gap between the stents, with apparent plaque disruption treated with a 3.5 x 9 mm Integrity stent inflated at 14 and then again at 16 atmospheres. I then postdilated these overlaps with a 3.5 x 15 mm NC balloon at 20 atmospheres. The LAD was now widely patent with CECILIO 3 flow and no thrombus or dissection. The fist septal electric meter installer helper branch which had severe ostial disease is occluded. The patient is being loaded with Plavix at the end of the procedure. FINDINGS: 1. Hemodynamics: Left ventricular pressure was 120/0 with an end-diastolic pressure of 4. Aortic pressure was 110/66 with a mean of 85. There was no gradient during pullback from the left ventricle to the aorta. 2. Coronary angiography: The left main coronary artery was large, long and normal appearing. The left anterior descending artery had a 70% proximal stenosis leading up to a 95% proximal LAD stenosis straddling the origin of the first septal electric meter installer helper branch which has 90% ostial disease. The stenoses extends in to the mid LAD. The distal LAD showed diffuse disease with as much as 35% stenosis. The left circumflex artery gave off 1 major obtuse marginal branch which was large and a small distal vessel with 10% irregularities. The right coronary artery was dominant and showed a widely patent mid stent with a 10% to 20% irregularities in the mid segment. 3. Results of stenting: Following stenting, the entire proximal mid LAD now was widely patent with a large lumen and CECILIO 3 flow. The first septal electric meter installer helper branch was no longer visualized. CONCLUSIONS: 1. Normal hemodynamics. 2. Preserved left ventricular function. 3. Critical complex single-vessel disease successfully rescued with 3 bare metal stents. Bare metal stents chosen because or poor compliance with medications. PLAN: Recommend aspirin and clopidogrel ideally on year. MD ANTOLIN Lutz/nan , 11:09 AM , 11:18 AM MTDD
[2018-08-27] MEDS: Sod Chloride 0.9% Inj 1,500 ML IV.CONT SCH (15:59)
[2018-08-27] MEDS: Famotidine 20 MG Tablet PO SCH ×2 (15:59→21:49)
[2018-08-28] MEDS: Insulin NovoLOG Aspart Correctional Sugar Inj SQ SCH ×4 (00:21→18:00)
[2018-08-28 06:42] LABS: Baso % (Auto) 0.2 % (0.0-2.0); Eos # (Auto) 0.1 th/mm3 (0.0-0.4); Eos % (Auto) 0.6 % (0.0-4.0); Hematocrit 44.3 % (39.0-51.0); Hemoglobin 15.1 gm/dL (13.0-17.0); Lymph # (Auto) 1.7 th/mm3 (1.0-4.8); Lymph % (Auto) 13.9 % (9.0-44.0); Mean Corpuscular HGB Conc 34.1 % (32.0-36.0); Mean Corpuscular Volume 88.2 fL (80.0-100.0); Mean Platelet Volume 7.9 fL (7.0-11.0); Mono # (Auto) 0.9 th/mm3 (0.0-0.9); Mono % (Auto) 7.3 % (0.0-8.0); Neut # (Auto) 9.5 th/mm3 (1.8-7.7); Platelet Count 307 th/mm3 (150-450); Red Blood Count 5.03 mil/mm3 (4.50-5.90); Red Cell Distribution Width 13.1 % (11.6-17.2); White Blood Count 12.1 th/mm3 (4.0-11.0)
[2018-08-28 07:08] LABS: Anion Gap 8 meq/L (5-15); Blood Urea Nitrogen 11 mg/dL (7-18); Calcium 8.6 mg/dL (8.5-10.1); Carbon Dioxide 25.8 meq/L (21.0-32.0); Chloride 102 meq/L (98-107); Glomerular Filtration Rate Greater Than 89 mL/min (>89); Glucose,Random 154 mg/dL (74-106); Sodium 136 meq/L (136-145)
[2018-08-28 07:11] LABS: Creatine Kinase 316 U/L (39-308)
[2018-08-28 07:29] LABS: Creatine Kinase MB 27.5 ng/mL (0.5-3.6)
[2018-08-28 07:46] LABS: CKMB Percent 8.7 % (0.0-4.0)
[2018-08-28] MEDS: Metoprolol Tartrate 25 MG Tablet PO SCH ×2 (08:49→20:45)
[2018-08-28] MEDS: Famotidine 20 MG Tablet PO SCH ×2 (08:50→20:46)
[2018-08-28] MEDS: guaiFENesin 600 MG ER Tablet PO SCH ×2 (08:50→20:45)
[2018-08-28] MEDS: Sod Chloride 0.9% Inj 1,000 ML IV.CONT SCH ×2 (08:56→16:33)
--- NOTE | 2018-08-28 09:12 | P.PN ---
Subjective Interval history: This is a pleasant 53 y/o Male with CAD status post VA and PCI with 3 stents placement history 2011, he has Hypertension Hyperlipidemia, GERD, UC and hx of C diff, who was admitted due to Chest pain, now with abnormal Lexiscan, Status post Left heart catheterization, with preserved Left Ventricular function, found with LAD stenosis of 95%, with diagnosis of single vessel disease status post rescued with 3 bare metal stents, due to Poor compliance with medications. by Doctor Abbe Segura. 08/28: Seen in his bedroom, status post angioplasty and Stents placed, recommended to continue Aspirin and Plavix and will follow laboratory in am for probable discharge. the patient has small infarct likely from closure of first septal ECG normal. Physical Exam Vital signs: Vital Signs 08/27/18 11:50 08/27/18 16:02 08/27/18 16:03 Temperature Pulse Rate Respiratory Rate 18 18 Blood Pressure Pulse Oximetry 95 08/27/18 17:00 08/27/18 17:21 08/27/18 18:00 Temperature 98.2 F Pulse Rate 75 75 72 Respiratory Rate 18 Blood Pressure 138/89 Pulse Oximetry 97 08/27/18 19:00 08/27/18 20:00 08/27/18 21:00 Temperature 98 F Pulse Rate 72 70 68 Respiratory Rate 16 Blood Pressure 136/85 Pulse Oximetry 97 08/27/18 22:00 08/27/18 23:00 08/28/18 00:00 Temperature 98.2 F Pulse Rate 66 70 69 Respiratory Rate 16 Blood Pressure 144/87 H Pulse Oximetry 96 08/28/18 01:00 08/28/18 02:00 08/28/18 03:00 Temperature 98 F Pulse Rate 71 73 60 Respiratory Rate 16 16 Blood Pressure 147/87 H Pulse Oximetry 96 08/28/18 04:00 08/28/18 05:00 08/28/18 06:00 Temperature Pulse Rate 62 75 65 Respiratory Rate Blood Pressure Pulse Oximetry Intake & Output 08/27/18 08/28/18 08/28/18 18:59 06:59 18:59 Intake Total 495 / 495 1480 / 1480 1000 / 1000 Output Total 350 / 350 1275 / 1275 Balance 145 / 145 205 / 205 1000 / 1000 Weight 75 kg Intake: IV 15 / 15 1000 / 1000 1000 / 1000 Heparin/NS PF Inj 1,500 ML @ 0 15 / 15 mls/hr .ROUTE .STK-MED ONE Rx#: [id number] NS Inj 1,000 ML @ 100 mls/hr IV 1000 / 1000 1000 / 1000 .CONT .Q10H [facility]JESH Rx#:[id number] Oral 480 / 480 480 / 480 Output: Urine 350 / 350 1275 / 1275 Other: # Voids 1 # Bowel Movements 0 Narrative: GENERAL: WDWN male patient. Awake and alert. Appears comfortable. In no acute distress. SKIN: Warm and dry. No generalized rash. HEENT: Atraumatic. Normocephalic. Pupils equal and round. No scleral icterus. No injection or drainage. No nasal bleeding or discharge. Mucous membranes pink and moist. NECK: Trachea midline. CARDIOVASCULAR: Regular rate and rhythm. RESPIRATORY: No accessory muscle use. Lungs clear to auscultation bilaterally. No wheezing or rhonchi. GASTROINTESTINAL: Abdomen soft, non-tender, nondistended. +BS. MUSCULOSKELETAL: Extremities without clubbing, cyanosis, or edema. No obvious deformities. NEUROLOGICAL: Awake and alert. No obvious cranial nerve deficits. Motor grossly within normal limits. Able to move all extremities spontaneously. Normal speech. PSYCHIATRIC: Appropriate mood and affect; insight and judgment normal. Results - Labs CBC & Chem 7: 08/28/18 05:28 08/28/18 05:28 Laboratory Results - last 24 hr 08/27/18 08/28/18 08/28/18 18:01 00:18 05:28 WBC 12.1 H D RBC 5.03 Hgb 15.1 Hct 44.3 MCV 88.2 MCH 30.0 MCHC 34.1 RDW 13.1 Plt Count 307 MPV 7.9 Neut % (Auto) 78.0 H Lymph % (Auto) 13.9 [place] % (Auto) 7.3 Eos % (Auto) 0.6 Baso % (Auto) 0.2 Neut # (Auto) 9.5 H Lymph # (Auto) 1.7 [place] # (Auto) 0.9 Eos # (Auto) 0.1 Baso # (Auto) 0.0 WBC Differential . Differential Comment Auto diff final Sodium Potassium Chloride Carbon Dioxide Anion Gap BUN Creatinine Estimated GFR POC Glucose 195 H 153 H Random Glucose Calcium Total Creatine Kinase CK-MB (CK-2) CK-MB (CK-2) % 10/08/28/18 08/28/18 05:28 06:28 07:52 WBC RBC Hgb Hct MCV MCH MCHC RDW Plt Count MPV Neut % (Auto) Lymph % (Auto) [place] % (Auto) Eos % (Auto) Baso % (Auto) Neut # (Auto) Lymph # (Auto) [place] # (Auto) Eos # (Auto) Baso # (Auto) WBC Differential Differential Comment Sodium 136 Potassium 4.0 Chloride 102 Carbon Dioxide 25.8 Anion Gap 8 BUN 11 Creatinine 0.87 Estimated GFR Greater than 89 POC Glucose 148 H 141 H Random Glucose 154 H Calcium 8.6 Total Creatine Kinase 316 H CK-MB (CK-2) 27.5 H CK-MB (CK-2) % 8.7 H* - Imaging Myocardial Perfusion Scan Nuc Med 08/25/18 00:00 CONCLUSION: 1. There is a moderate size reversible perfusion defect involving the anterior and anterior septal wall of the mid left ventricle and apex. Findings are suspicious for stress-induced ischemia. 2. Normal left ventricle wall motion and ejection fraction. Chest X-Ray 08/26/18 00:00 CONCLUSION: No acute cardiopulmonary abnormality is identified. - Procedures Status post Left heart catheterization, with preserved Left Ventricular function , found with LAD stenosis of 95%, with diagnosis of single vessel disease status post rescued with 3 bare metal stents, due to Poor compliance with medications. by Doctor Abbe Segura. Assessment and Plan - Plan 53yo male with a PMHX significant for CAD with hx of previous VA and cardiac stents x 3, the last one placed in 2011, hypertension, dyslipidemia, GERD, UC and hx of C diff who presents to [facility] ED with complaints of chest pain. Chest pain r/o ACS CAD s/p previous VA and hx of cardiac stents x 3 Medication noncomplian Echo 2015 EF 55-60% Lexiscan with moderate sized reversible perfusion defect involving the anterior and anterior septal wall of the mid left ventricle and apex -Continue on Asa, lipitor and BB daily -continuous cardiac monitoring -Nitro prn chest pain -Status post Left heart catheterization, with preserved Left Ventricular function, found with LAD stenosis of 95%, with diagnosis of single vessel disease status post rescued with 3 bare metal stents, due to Poor compliance with medications. by Doctor Abbe Segura. Not yet cleared for discharge. Acute bronchitis, improved CXR shows no acute cardiopulmonary abnormality, images reviewed by me Rivera scheduled -Mucinex BID -Guerline ortiz prn cough -IS and acapella Hypertension Dyslipidemia noncompliant with medications due to lack of funding -continue on low dose BB Metoprolol 12.5mg BID -started on Lipitor 40mg daily, continue -monitor BP and adjust treatment accordingly DM, type 2, newly diagnosed HgbA1c 8.0 BS running mid 100s -Consult dietitian for diabetic education -Accu-Cheks and insulin sliding scale -Cardiac diabetic diet once no longer NPO -may benefit from initiation of Metformin but will hold off for now due to cardiac cath -patient will need repeat HgbA1c in 3 mos as outpatient GERD hx of C diff Patient reports loose stools -C diff ordered but no specimen as of yet -Pepcid 20mg BID DVT prophylaxis -bilateral SCDs/MARY LOU hose Code Status: Full code. Discussed Condition With: patient and Nurse. Discharge Planning: Not yet cleared for discharge by compliance review specialist.
--- NOTE | 2018-08-28 09:23 | P.PNCA ---
Subjective Interval history: C/o mild constant chest pain Medications and Allergies Active Medications: Active Medications Al Hydroxide/Mg Hydroxide (Milk Of Magnesia Liq) 30 ml PO Q12H PRN PRN Reason: Mild Constipation Albuterol (Duoneb Neb (Gena)) 1 ampul NEB Q6HR WHILE AWAKE NEB [facility] Last Admin: 08/27/18 16:05 Dose: Not Given Amlodipine Besylate (Norvasc) 2.5 mg PO DAILY [facility] Aspirin (Aspirin Chew) 81 mg PO DAILY [facility] Atorvastatin Calcium (Lipitor) 40 mg PO DAILY [facility] Last Admin: 08/28/18 08:49 Dose: 40 mg Benzonatate (Tessalon Perles) 100 mg PO Q8H PRN PRN Reason: COUGH Last Admin: 08/26/18 10:16 Dose: 100 mg Bisacodyl (Dulcolax Supp) 10 mg RECTAL DAILY PRN PRN Reason: SEVERE CONSITIPATION Clopidogrel Bisulfate (Plavix) 75 mg PO DAILY [facility] Last Admin: 08/28/18 08:49 Dose: 75 mg Dextrose (D50w Vial) 50 ml IV.PUSH UNSCH PRN PRN Reason: PER HYPOGLYCEMIA PROTOCOL Diazepam (Valium) 5 mg PO [employer]ENT [employer]S [facility] Stop: 08/31/18 04:59 Diphenhydramine HCl (Benadryl Inj) 25 mg IV.PUSH [employer]S [facility] Stop: 08/31/18 04:59 Famotidine (Pepcid) 20 mg PO BID [facility] Last Admin: 08/28/18 08:50 Dose: 20 mg Glucagon (Glucagon Inj) 1 mg OTHER PRN PRN PRN Reason: for Hypoglycemia Protocol Guaifenesin (Mucinex Er) 600 mg PO BID [facility] Last Admin: 08/28/18 08:50 Dose: 600 mg Sodium Chloride (Ns Inj) 1,000 mls @ 100 mls/hr IV.CONT .Q10H [facility] Last Admin: 08/28/18 08:56 Dose: 100 mls/hr Sodium Chloride (Ns Inj) 1,500 mls @ 100 mls/hr IV.CONT .Q15H [facility] Last Admin: 08/27/18 15:59 Dose: 100 mls/hr Insulin Aspart (Novolog Insulin Correctional Sugar Inj) 0 unit SQ Q6HR [facility]; Protocol Last Admin: 08/28/18 06:30 Dose: Not Given Lactulose (Lactulose Liq) 30 ml PO DAILY PRN PRN Reason: SEVERE CONSITIPATION Metoprolol Tartrate (Lopressor) 25 mg PO BID [facility] Miscellaneous Information (Misc Info For Pharmacy/Read Comments) 1 each OTHER UNSCH [facility] Morphine Sulfate (Morphine Inj) 3 mg IV.PUSH Q30M PRN PRN Reason: BREAKTHROUGH PAIN Last Admin: 08/27/18 14:28 Dose: 3 mg Nitroglycerin (Nitrostat Sl) 0.4 mg SL Q5M PRN PRN Reason: CHEST PAIN Ondansetron HCl (Zofran Inj) 4 mg IV.PUSH Q6H PRN PRN Reason: NAUSEA Last Admin: 08/28/18 09:00 Dose: 4 mg Oxycodone/Acetaminophen (Percocet 10/325 Mg) 1 tab PO Q4H PRN PRN Reason: PAIN SCALE 6 TO 10 Last Admin: 08/28/18 00:24 Dose: 1 tab Oxycodone/Acetaminophen (Percocet 5/325 Mg) 1 tab PO Q4H PRN PRN Reason: PAIN SCALE 3 TO 5 Last Admin: 08/28/18 06:47 Dose: 1 tab Sennosides (Senokot) 17.2 mg PO Q12H PRN PRN Reason: Moderate Constipation Sodium Chloride (Ns Flush) 2 ml IV.FLUSH BID [facility] Last Admin: 08/27/18 20:42 Dose: 2 ml Sodium Chloride (Ns Flush) 2 ml IV.FLUSH PRN PRN PRN Reason: FLUSH AFTER USING IV ACCESS Allergies Allergy/AdvReac Type Severity Reaction Status Date / Time penicillin G Allergy Severe Anaphylaxis Verified 08/24/18 15:28 Home Medications Medication Instructions Recorded Confirmed Type No Known Home Medications 08/24/18 08/24/18 History Physical Exam Vital signs: Vital Signs 08/27/18 11:50 08/27/18 16:02 08/27/18 16:03 Temperature Pulse Rate Respiratory Rate 18 18 Blood Pressure Pulse Oximetry 95 08/27/18 17:00 08/27/18 17:21 08/27/18 18:00 Temperature 98.2 F Pulse Rate 75 75 72 Respiratory Rate 18 Blood Pressure 138/89 Pulse Oximetry 97 08/27/18 19:00 08/27/18 20:00 08/27/18 21:00 Temperature 98 F Pulse Rate 72 70 68 Respiratory Rate 16 Blood Pressure 136/85 Pulse Oximetry 97 08/27/18 22:00 08/27/18 23:00 08/28/18 00:00 Temperature 98.2 F Pulse Rate 66 70 69 Respiratory Rate 16 Blood Pressure 144/87 H Pulse Oximetry 96 08/28/18 01:00 08/28/18 02:00 08/28/18 03:00 Temperature 98 F Pulse Rate 71 73 60 Respiratory Rate 16 16 Blood Pressure 147/87 H Pulse Oximetry 96 08/28/18 04:00 08/28/18 05:00 08/28/18 06:00 Temperature Pulse Rate 62 75 65 Respiratory Rate Blood Pressure Pulse Oximetry 08/28/18 08:00 Temperature 98.0 F Pulse Rate 65 Respiratory Rate 17 Blood Pressure 150/93 H Pulse Oximetry 98 Intake & Output 08/27/18 08/28/18 08/28/18 18:59 06:59 18:59 Intake Total 495 / 495 1480 / 1480 1000 / 1000 Output Total 350 / 350 1275 / 1275 Balance 145 / 145 205 / 205 1000 / 1000 Weight 75 kg Intake: IV 15 / 15 1000 / 1000 1000 / 1000 Heparin/NS PF Inj 1,500 ML @ 0 15 / 15 mls/hr .ROUTE .STK-MED ONE Rx#: [id number] NS Inj 1,000 ML @ 100 mls/hr IV 1000 / 1000 1000 / 1000 .CONT .Q10H [facility] Rx#:[id number] Oral 480 / 480 480 / 480 Output: Urine 350 / 350 1275 / 1275 Other: # Voids 1 # Bowel Movements 0 Narrative: Alert, not in acute distress Unusual affect Chest clear CV S1S2 RRR abd soft Right wrist OK EKG's nl Results 08/28/18 05:28 08/28/18 05:28 Cardiac Enzymes 08/26/18 08/28/18 Range/Units 09:26 05:28 CK-MB (CK-2) 27.5 H (0.5-3.6) ng/mL B-Natriuretic Peptide 3 (0-100) pg/mL Coagulation 08/26/18 Range/Units 09:26 B-Natriuretic Peptide 3 (0-100) pg/mL CBC 08/26/18 08/27/18 08/28/18 Range/Units 09:26 06:00 05:28 WBC 8.9 7.6 12.1 H D (4.0-11.0) th/mm3 RBC 5.29 4.98 5.03 (4.50-5.90) mil/mm3 Hgb 16.1 15.1 15.1 (13.0-17.0) gm/dL Hct 45.6 44.0 44.3 (39.0-51.0) % Plt Count 272 283 307 (150-450) th/mm3 Neut # (Auto) 4.9 4.0 9.5 H (1.8-7.7) th/mm3 Lymph # (Auto) 3.2 2.8 1.7 (1.0-4.8) th/mm3 [place] # (Auto) 0.6 0.6 0.9 (0.0-0.9) th/mm3 Eos # (Auto) 0.2 0.1 0.1 (0.0-0.4) th/mm3 Baso # (Auto) 0.0 0.0 0.0 (0.0-0.2) th/mm3 Comprehensive Metabolic Panel 08/26/18 08/27/18 08/28/18 Range/Units 09:26 06:00 05:28 Sodium 136 135 L 136 (136-145) meq/L Potassium 3.7 4.2 4.0 (3.5-5.1) meq/L Chloride 102 102 102 (98-107) meq/L Carbon Dioxide 24.4 26.3 25.8 (21.0-32.0) meq/L BUN 18 16 11 (7-18) mg/dL Creatinine 0.84 0.91 0.87 (0.60-1.30) mg/dL Calcium 8.4 L 8.4 L 8.6 (8.5-10.1) mg/dL Intake and Output 08/27/18 08/28/18 08/28/18 22:59 06:59 14:59 Intake Total 1480 / 1480 480 / 480 1000 / 1000 Output Total 350 / 350 1275 / 1275 Balance 1130 / 1130 -795 / -795 1000 / 1000 Intake: IV 1000 / 1000 1000 / 1000 NS Inj 1,000 ML @ 100 mls/hr IV 1000 / 1000 1000 / 1000 .CONT .Q10H [facility] Rx#:[id number] Oral 480 / 480 480 / 480 Output: Urine 350 / 350 1275 / 1275 Other: # Voids 1 # Bowel Movements 0 Weight 75 kg - Imaging and Cardiology Imaging: Impressions Chest X-Ray 08/26/18 00:00 CONCLUSION: No acute cardiopulmonary abnormality is identified. Assessment and Plan - Assessment (1) Coronary artery disease Code(s): I25.10 - Atherosclerotic heart disease of [place] coronary artery without angina pectoris Status: Acute (2) Myocardial infarction during current hospitalization Code(s): I21.9 - Acute myocardial infarction, unspecified Status: Acute Plan: LAD widely patent post stenting but small infarct likely from closure of 1st septal. EKG nl. (3) Hyperlipidemia Code(s): E78.5 - Hyperlipidemia, unspecified Status: Acute (4) Noncompliance Code(s): Z91.19 - Patient's noncompliance with other medical treatment and regimen Status: Acute (5) Stented coronary artery Code(s): Z95.5 - Presence of coronary angioplasty implant and graft Status: Acute Plan: cont ASA and clopidogrel. Check Verify now AM
[2018-08-28] MEDS: amLODIPine 5 MG Tablet PO SCH (12:07)
--- NOTE | 2018-08-28 15:11 | ECG ---
Date Performed: 08/27/2018 Time Performed: 21:53:44 PTAGE: 53 years EKG: Sinus rhythm Since the previous tracing, no significant change noted Normal ECG PREVIOUS TRACING : 08/25/2018 03.02 DOCTOR: Manuel Kearney Interpretating Date/Time 08/28/2018 14:57:00
--- NOTE | 2018-08-28 15:11 | ECG ---
Date Performed: 08/28/2018 Time Performed: 05:21:44 PTAGE: 53 years EKG: Sinus rhythm Septal T wave changes are nonspecific Since the previous tracing, no significant change noted Border line ECG PREVIOUS TRACING : 08/27/2018 21.53 DOCTOR: Manuel Kearney Interpretating Date/Time 08/28/2018 14:57:09
[2018-08-28] MEDS: Sod Chloride 0.9% Inj 1,500 ML IV.CONT SCH (16:34)
[2018-08-29] MEDS: Insulin NovoLOG Aspart Correctional Sugar Inj SQ SCH ×4 (00:09→17:18)
[2018-08-29] MEDS: guaiFENesin 600 MG ER Tablet PO SCH (10:11)
[2018-08-29] MEDS: Famotidine 20 MG Tablet PO SCH (10:11)
[2018-08-29] MEDS: Metoprolol Tartrate 25 MG Tablet PO SCH (10:23)
[2018-08-29] MEDS: amLODIPine 5 MG Tablet PO SCH (10:23)
--- NOTE | 2018-08-29 11:01 | P.DIET ---
Nutritional Evaluation Type of nutrition evaluation: initial Nutrition screening: MDC (diet education for new DM) Assessment Assessment: MDC for new DM diet education. Pt was receptive and asked questions about DM diets. RD reviewed consistent carbohydrate intake/counting, food labels, and healthy food choices. Recommendations: Will answer any DM dietary questions as needed
--- NOTE | 2018-08-29 11:10 | P.PNCA ---
Subjective Interval history: Chest feels better today. CPK down to nl. Medications and Allergies Active Medications: Active Medications Al Hydroxide/Mg Hydroxide (Milk Of Magnesia Liq) 30 ml PO Q12H PRN PRN Reason: Mild Constipation Albuterol (Duoneb Neb (Gena)) 1 ampul NEB Q6HR WHILE AWAKE NEB [facility] Last Admin: 08/29/18 09:25 Dose: Not Given Amlodipine Besylate (Norvasc) 2.5 mg PO DAILY [facility] Last Admin: 08/29/18 10:23 Dose: Not Given Aspirin (Aspirin Chew) 81 mg PO DAILY [facility] Last Admin: 08/29/18 10:11 Dose: 81 mg Atorvastatin Calcium (Lipitor) 40 mg PO DAILY [facility] Last Admin: 08/29/18 10:11 Dose: 40 mg Benzonatate (Tessalon Perles) 100 mg PO Q8H PRN PRN Reason: COUGH Last Admin: 08/26/18 10:16 Dose: 100 mg Bisacodyl (Dulcolax Supp) 10 mg RECTAL DAILY PRN PRN Reason: SEVERE CONSITIPATION Last Admin: 08/29/18 10:18 Dose: 10 mg Clopidogrel Bisulfate (Plavix) 75 mg PO DAILY [facility] Last Admin: 08/29/18 10:12 Dose: 75 mg Dextrose (D50w Vial) 50 ml IV.PUSH UNSCH PRN PRN Reason: PER HYPOGLYCEMIA PROTOCOL Diazepam (Valium) 5 mg PO [employer] [facility] Stop: 08/31/18 04:59 Diphenhydramine HCl (Benadryl Inj) 25 mg IV.PUSH [employer] [facility] Stop: 08/31/18 04:59 Famotidine (Pepcid) 20 mg PO BID [facility] Last Admin: 08/29/18 10:11 Dose: 20 mg Glucagon (Glucagon Inj) 1 mg OTHER PRN PRN PRN Reason: for Hypoglycemia Protocol Guaifenesin (Mucinex Er) 600 mg PO BID [facility] Last Admin: 08/29/18 10:11 Dose: 600 mg Insulin Aspart (Novolog Insulin Correctional Sugar Inj) 0 unit SQ Q6HR [facility]; Protocol Last Admin: 08/29/18 05:43 Dose: Not Given Lactulose (Lactulose Liq) 30 ml PO DAILY PRN PRN Reason: SEVERE CONSITIPATION Metoprolol Tartrate (Lopressor) 25 mg PO BID [facility] Last Admin: 08/29/18 10:23 Dose: Not Given Miscellaneous Information (Misc Info For Pharmacy/Read Comments) 1 each OTHER UNSCH [facility] Morphine Sulfate (Morphine Inj) 3 mg IV.PUSH Q30M PRN PRN Reason: BREAKTHROUGH PAIN Last Admin: 08/27/18 14:28 Dose: 3 mg Nitroglycerin (Nitrostat Sl) 0.4 mg SL Q5M PRN PRN Reason: CHEST PAIN Ondansetron HCl (Zofran Inj) 4 mg IV.PUSH Q6H PRN PRN Reason: NAUSEA Last Admin: 08/28/18 09:00 Dose: 4 mg Oxycodone/Acetaminophen (Percocet 10/325 Mg) 1 tab PO Q4H PRN PRN Reason: PAIN SCALE 6 TO 10 Last Admin: 08/28/18 00:24 Dose: 1 tab Oxycodone/Acetaminophen (Percocet 5/325 Mg) 1 tab PO Q4H PRN PRN Reason: PAIN SCALE 3 TO 5 Last Admin: 08/28/18 06:47 Dose: 1 tab Sennosides (Senokot) 17.2 mg PO Q12H PRN PRN Reason: Moderate Constipation Sodium Chloride (Ns Flush) 2 ml IV.FLUSH BID [facility] Last Admin: 08/29/18 10:18 Dose: 2 ml Sodium Chloride (Ns Flush) 2 ml IV.FLUSH PRN PRN PRN Reason: FLUSH AFTER USING IV ACCESS Allergies Allergy/AdvReac Type Severity Reaction Status Date / Time penicillin G Allergy Severe Anaphylaxis Verified 08/24/18 15:28 Home Medications Medication Instructions Recorded Confirmed Type No Known Home Medications 08/24/18 08/24/18 History Physical Exam Vital signs: Vital Signs 08/28/18 12:00 08/28/18 13:00 08/28/18 13:38 Temperature 98.1 F Pulse Rate 80 80 64 Respiratory Rate 18 16 Blood Pressure 134/72 Pulse Oximetry 100 08/28/18 14:00 08/28/18 15:00 08/28/18 16:00 Temperature 98.4 F Pulse Rate 76 75 76 Respiratory Rate 18 Blood Pressure 124/82 Pulse Oximetry 100 08/28/18 17:00 08/28/18 18:00 08/28/18 19:00 Temperature Pulse Rate 76 78 76 Respiratory Rate Blood Pressure Pulse Oximetry 08/28/18 20:00 08/28/18 20:32 08/28/18 21:00 Temperature 98.6 F Pulse Rate 70 79 78 Respiratory Rate 16 18 Blood Pressure 137/82 Pulse Oximetry 98 97 08/28/18 22:00 08/28/18 23:00 08/29/18 00:00 Temperature 98.3 F Pulse Rate 80 76 70 Respiratory Rate 16 Blood Pressure 106/70 Pulse Oximetry 97 08/29/18 01:00 08/29/18 02:00 08/29/18 03:00 Temperature Pulse Rate 72 69 67 Respiratory Rate Blood Pressure Pulse Oximetry 08/29/18 03:32 08/29/18 04:00 08/29/18 05:00 Temperature 98.7 F Pulse Rate 73 67 71 Respiratory Rate 16 Blood Pressure 102/62 Pulse Oximetry 98 08/29/18 06:00 08/29/18 07:00 08/29/18 07:55 Temperature Pulse Rate 68 70 Respiratory Rate Blood Pressure Pulse Oximetry 97 08/29/18 08:00 08/29/18 09:00 08/29/18 10:00 Temperature 98.7 F Pulse Rate 78 76 74 Respiratory Rate 17 Blood Pressure 107/68 Pulse Oximetry 97 08/29/18 10:29 Temperature Pulse Rate 73 Respiratory Rate Blood Pressure Pulse Oximetry Intake & Output 08/28/18 08/29/18 08/29/18 18:59 06:59 18:59 Intake Total 3360 / 3360 240 / 240 Output Total 1200 / 1200 1000 / 1000 Balance 2160 / 2160 -760 / -760 Weight 75.6 kg Intake: IV 2500 / 2500 NS Inj 1,500 ML @ 100 mls/hr IV 2500 / 2500 .CONT .Q15H [facility] Rx#:[id number] Oral 860 / 860 240 / 240 Output: Urine 1200 / 1200 1000 / 1000 Other: Date of Last Bowel Movement 08/26/18 08/26/18 # Bowel Movements 0 Narrative: GENERAL: WDWN male patient. Awake and alert. Appears comfortable. In no acute distress. SKIN: Warm and dry. No generalized rash. HEENT: Atraumatic. Normocephalic. NECK: Trachea midline. CARDIOVASCULAR: nl S1 S2 gegular rate and rhythm. RESPIRATORY: No accessory muscle use. Lungs clear to auscultation bilaterally. No wheezing or rhonchi. GASTROINTESTINAL: Abdomen soft, non-tender, nondistended. +BS. MUSCULOSKELETAL: Extremities without clubbing, cyanosis, or edema. No obvious deformities. NEUROLOGICAL: Awake and alert. No obvious deficits PSYCHIATRIC: Appropriate mood and affect; insight and judgment normal. Results 08/28/18 05:28 08/28/18 05:28 Cardiac Enzymes 08/28/18 Range/Units 05:28 CK-MB (CK-2) 27.5 H (0.5-3.6) ng/mL CBC 08/28/18 Range/Units 05:28 WBC 12.1 H D (4.0-11.0) th/mm3 RBC 5.03 (4.50-5.90) mil/mm3 Hgb 15.1 (13.0-17.0) gm/dL Hct 44.3 (39.0-51.0) % Plt Count 307 (150-450) th/mm3 Neut # (Auto) 9.5 H (1.8-7.7) th/mm3 Lymph # (Auto) 1.7 (1.0-4.8) th/mm3 [place] # (Auto) 0.9 (0.0-0.9) th/mm3 Eos # (Auto) 0.1 (0.0-0.4) th/mm3 Baso # (Auto) 0.0 (0.0-0.2) th/mm3 Comprehensive Metabolic Panel 08/28/18 Range/Units 05:28 Sodium 136 (136-145) meq/L Potassium 4.0 (3.5-5.1) meq/L Chloride 102 (98-107) meq/L Carbon Dioxide 25.8 (21.0-32.0) meq/L BUN 11 (7-18) mg/dL Creatinine 0.87 (0.60-1.30) mg/dL Calcium 8.6 (8.5-10.1) mg/dL Intake and Output 08/28/18 08/29/18 08/29/18 22:59 06:59 14:59 Intake Total 2360 / 2360 240 / 240 Output Total 1200 / 1200 1000 / 1000 Balance 1160 / 1160 -760 / -760 Intake: IV 1500 / 1500 NS Inj 1,500 ML @ 100 mls/hr IV 1500 / 1500 .CONT .Q15H [facility] Rx#:[id number] Oral 860 / 860 240 / 240 Output: Urine 1200 / 1200 1000 / 1000 Other: Date of Last Bowel Movement 08/26/18 # Bowel Movements 0 Weight 75.6 kg Assessment and Plan - Assessment (1) Coronary artery disease Code(s): I25.10 - Atherosclerotic heart disease of [place] coronary artery without angina pectoris Status: Acute (2) Myocardial infarction during current hospitalization Code(s): I21.9 - Acute myocardial infarction, unspecified Status: Acute Plan: LAD widely patent post stenting but small infarct likely from closure of 1st septal. EKG nl. (3) Hyperlipidemia Code(s): E78.5 - Hyperlipidemia, unspecified Status: Acute (4) Noncompliance Code(s): Z91.19 - Patient's noncompliance with other medical treatment and regimen Status: Acute (5) Stented coronary artery Code(s): Z95.5 - Presence of coronary angioplasty implant and graft Status: Acute Plan: cont ASA and clopidogrel. Verify now proves clopidogrel is working. - Plan From cardiac perspective, patient is stable for discharge.
--- NOTE | 2018-08-29 15:28 | P.DS ---
Date of admission: 08/24/18 19:02 Primary care physician: No Primary Care Physician Brief History from admission: This is a 53yo male with a PMHX significant for CAD with hx of previous SD and cardiac stents x 3, first SD in 2008 with 2 stents placed and the last one placed in 2011, hypertension, dyslipidemia, GERD, UC and hx of C diff who presents to [facility] ED with complaints of chest pain. DS: Medications - Discharge Medications Prescriptions: amlodipine [Norvasc] 2.5 mg PO DAILY #30 tab aspirin 81 mg PO DAILY #30 tab atorvastatin 40 mg PO DAILY #30 tab clopidogrel [Plavix] 75 mg PO DAILY #30 tab metformin 500 mg PO BID #60 tab metoprolol tartrate 25 mg PO BID #60 tab DS: Summary Hospital Course: This patient is a 53-year-old male with a diagnosis of coronary artery disease status post SD in 2008 and in 2011 with a total of 3 previous stents placed. Patient also has hypertension, dyslipidemia, gastroesophageal reflux disease, ulcerative colitis, and a history of C. difficile. Patient presented to our facility with complaints of left-sided chest pain. 1. Chest pain with coronary artery disease status post 3 bare metal stents of the LAD. 2. Hypertension/dyslipidemia The patient underwent Lexiscan which showed a re-vertebral perfusion defect. He underwent cardiac catheterization which showed 95% LAD stenosis and 3 bare- metal stents were placed. Preserved ejection fraction. Patient was followed by cardiology during the hospitalization. They have cleared him for discharge. The patient is to continue aspirin, statin, Plavix, beta-srini. The patient was also started on antihypertensives. All medications were printed out for the patient and case management will work on filling the prescriptions for the patient prior to him leaving the hospital. He was advised to follow-up with a primary care doctor in the next 1 week. He was also advised to avoid strenuous activity for the next 2 weeks. 3. New onset diabetes mellitus type 2. Hemoglobin A1c is 8.0. The patient's blood sugars have been running in the 150s to low 200s. On discharge he will be started on metformin 500 mg twice daily. He was counseled on diet and exercise after the next couple of weeks. He needs to follow-up with a primary care doctor for regular monitoring of his vision, foot examination, kidney function. His diabetes medication regimen can be adjusted outpatient. The patient will be discharged home today. 4. Gastroesophageal reflux disease Patient can continue to take Pepcid for reflux disease. - Time Spent with Patient Total time spent providing and/or coordinating discharge services: Greater than 30 minutes - Quality: VTE Deep Vein Thrombosis/Pulmonary Embolism Present on Admission: No Exam Vital signs: Vital Signs 08/28/18 16:00 08/28/18 17:00 08/28/18 18:00 Temperature 98.4 F Pulse Rate 76 76 78 Respiratory Rate 18 Blood Pressure 124/82 Pulse Oximetry 100 08/28/18 19:00 08/28/18 20:00 08/28/18 20:32 Temperature 98.6 F Pulse Rate 76 70 79 Respiratory Rate 16 18 Blood Pressure 137/82 Pulse Oximetry 98 97 08/28/18 21:00 08/28/18 22:00 08/28/18 23:00 Temperature Pulse Rate 78 80 76 Respiratory Rate Blood Pressure Pulse Oximetry 08/29/18 00:00 08/29/18 01:00 08/29/18 02:00 Temperature 98.3 F Pulse Rate 70 72 69 Respiratory Rate 16 Blood Pressure 106/70 Pulse Oximetry 97 08/29/18 03:00 08/29/18 03:32 08/29/18 04:00 Temperature 98.7 F Pulse Rate 67 73 67 Respiratory Rate 16 Blood Pressure 102/62 Pulse Oximetry 98 08/29/18 05:00 08/29/18 06:00 08/29/18 07:00 Temperature Pulse Rate 71 68 70 Respiratory Rate Blood Pressure Pulse Oximetry 08/29/18 07:55 08/29/18 08:00 08/29/18 09:00 Temperature 98.7 F Pulse Rate 78 76 Respiratory Rate 17 Blood Pressure 107/68 Pulse Oximetry 97 97 08/29/18 10:00 08/29/18 10:29 08/29/18 11:00 Temperature Pulse Rate 74 73 70 Respiratory Rate Blood Pressure Pulse Oximetry 08/29/18 11:23 08/29/18 12:00 08/29/18 13:00 Temperature 98.3 F Pulse Rate 75 72 70 Respiratory Rate 16 Blood Pressure 125/81 Pulse Oximetry 97 08/29/18 14:48 Temperature Pulse Rate 81 Respiratory Rate 16 Blood Pressure Pulse Oximetry Intake & Output 08/28/18 08/29/18 08/29/18 18:59 06:59 18:59 Intake Total 3360 / 3360 240 / 240 Output Total 1200 / 1200 1000 / 1000 Balance 2160 / 2160 -760 / -760 Weight 75.6 kg Intake: IV 2500 / 2500 NS Inj 1,500 ML @ 100 mls/hr IV 2500 / 2500 .CONT .Q15H RAJESH Rx#:[id number] Oral 860 / 860 240 / 240 Output: Urine 1200 / 1200 1000 / 1000 Other: Date of Last Bowel Movement 08/26/18 08/26/18 # Bowel Movements 0 Narrative: General patient in no acute distress HEENT extraocular movements are intact, clear oropharyngeal mucosa, no JVD Cardiovascular S1-S2 audible, RRR, no murmurs rubs or gallops, no chest pain Respiratory clear to auscultation bilaterally Abdomen soft, nontender, nondistended, normal bowel sounds Extremities no edema 2+ distal pulses in bilateral upper and lower extremities Neuro cranial nerves II through XII intact Results Procedures completed during hospitalization: Status post Left heart catheterization, with preserved Left Ventricular function , found with LAD stenosis of 95%, with diagnosis of single vessel disease status post rescued with 3 bare metal stents, due to Poor compliance with medications. by Doctor Abbe Segura. Labs on day of discharge: Labs from last 24 hours 08/29/18 08/29/18 08/29/18 10:57 10:09 10:09 Plt Funct P2Y12 Units 97 L POC Glucose 164 H Total Creatine Kinase 143 08/29/18 08/29/18 08/28/18 08:02 05:41 23:34 Plt Funct P2Y12 Units POC Glucose 195 H 143 H 153 H Total Creatine Kinase 08/28/18 16:10 Plt Funct P2Y12 Units POC Glucose 172 H Total Creatine Kinase - Impressions ITS Impressions Myocardial Perfusion Scan Nuc Med 08/25/18 00:00 CONCLUSION: 1. There is a moderate size reversible perfusion defect involving the anterior and anterior septal wall of the mid left ventricle and apex. Findings are suspicious for stress-induced ischemia. 2. Normal left ventricle wall motion and ejection fraction. Chest X-Ray 08/26/18 00:00 CONCLUSION: No acute cardiopulmonary abnormality is identified. Discharge Plan - Discharge Disposition Patient Disposition: 01 Discharge Home - Discharge Condition Condition: Good - Discharge Order Discharge Orders: Discharge Order (Routine); Ordered 08/29/18 Ordered By: Cole Ibarra - Physicians Team Primary Care Provider: Primary Care Physici,No Attending Provider: Cole Ibarra Other Providers: Sonia Root MD ; Abbe Segura MD
== END 2018-08-29 19:10 | disposition home or self-care (01) ==
LOC: NEPC 12:30 → NEDA 12:30 → NEPHCDU 21:20 → HCIS 08-27 09:04
PROVIDERS: ADMIT Hospitalist; ATTEND Hospitalist